=== PATIENT | male | born 1965 | race Caucasian/White ===

== ENCOUNTER → 2024-01-17 | Outpatient (CLI) | payer MEDICAID, SELFPAY ==
[2024-01-17 12:48] LABS: Absolute Lymphocyte Count 2.53 X10^3/uL (0.83-4.51); Absolute Neutrophil Count 3.8 X10^3/uL (2.0-7.7); Basophil# 0.07 X10^3/uL; Eosinophil# 0.14 X10^3/uL; Hematocrit 45.5 % (40-54); Hemoglobin 14.4 g/dL (13.0-16.5); Lymphocyte # 2.53 X10^3/ul (0.83-4.51); Lymphocyte % 35.5 % (19-41); Mean Corp Hgb Conc 31.6 g/dL (32-36); Mean Corpuscular Hgb 28.7 pg (27.0-32.0); Mean Corpuscular Volume 90.8 fL (80-94); Mean Platelet Vol. 10.9 fl (6.2-12.0); Monocyte% 8.4 % (0-10); NRBC Flagged by Analyzer 0 % (0-5); Neutrophil # 3.77 X10^3/uL (2.7-7.7); Neutrophil % 52.8 % (47-70); Platelet Count 250 K/mm3 (150-450); RBC Distribution Width CV 12.7 % (11.6-14.6); RBC Distribution Width SD 41.8 fl (35.1-43.9); Red Blood Count 5.01 M/mm3 (4.6-6.2); White Blood Count 7.1 K/mm3 (4.4-11.0)
[2024-01-17 13:05] LABS: ALB/GLOB Ratio 0.8 RATIO (0.9-2.4); AST(SGOT) 14 U/L (15-37); Alanine Aminotransfer ALT/SGPT 19 U/L (16-61); Albumin, Serum 3.9 g/dL (3.2-5.0); Alkaline Phosphatase 84 U/L (45-117); Anion Gap 6 (5-15); BUN 13 mg/dL (7-18); BUN/Creat Ratio 15.6 RATIO (10-20); Calcium,Total 9.2 mg/dL (8.5-10.1); Chloride 98 mmol/L (98-107); Cholesterol 249 mg/dL (200); Creatinine, Serum 0.83 mg/dL (0.70-1.30); EST Glomerular Filtration Rate 100 mL/min (>60); Est Glom Filt Rate - Afr Amer 121 mL/min (>60); Glucose 188 mg/dL (74-106); High Density Lipoprotein 36 mg/dL; Potassium 4.2 mmol/L (3.5-5.1); Protein, Total 8.9 g/dL (6.4-8.2); Sodium Level 134 mmol/L (136-145); Triglycerides 272 mg/dL; Very Low Density Lipoprotein 54 mg/dL (5-40)
[2024-01-17 13:06] LABS: Microalbumin,Random Urine 11.7 mg/L (NO RANGE EST.)
== END | disposition home or self-care (01) ==
DX: E11.9 Type 2 diabetes mellitus without complications (principal)
CPT/HCPCS: 36415; 80053; 80061; 82043; 84443; 85025

== ENCOUNTER → 2024-07-18 | Outpatient (CLI) | payer MEDICAID, SELFPAY ==
[2024-07-18 12:39] LABS: Absolute Lymphocyte Count 2.72 X10^3/uL (0.83-4.51); Absolute Neutrophil Count 4.4 X10^3/uL (2.0-7.7); Basophil# 0.08 X10^3/uL; Eosinophil# 0.23 X10^3/uL; Eosinophils% 2.8 % (0-5); Hemoglobin 13.9 g/dL (13.0-16.5); Lymphocyte # 2.72 X10^3/ul (0.83-4.51); Lymphocyte % 33.3 % (19-41); Mean Corp Hgb Conc 32.3 g/dL (32-36); Mean Corpuscular Hgb 28.8 pg (27.0-32.0); Mean Platelet Vol. 10.6 fl (6.2-12.0); Monocyte# 0.65 X10^3/uL; Monocyte% 7.9 % (0-10); NRBC Flagged by Analyzer 0 % (0-5); Neutrophil # 4.43 X10^3/uL (2.7-7.7); Neutrophil % 54.1 % (47-70); Platelet Count 243 K/mm3 (150-450); RBC Distribution Width CV 12.7 % (11.6-14.6); RBC Distribution Width SD 41.7 fl (35.1-43.9); Red Blood Count 4.83 M/mm3 (4.6-6.2); White Blood Count 8.2 K/mm3 (4.4-11.0)
[2024-07-18 13:05] LABS: Microalbumin,Random Urine < 12.0 mg/L (NO RANGE EST.)
[2024-07-18 13:16] LABS: AST(SGOT) 16 U/L (<=37); Alanine Aminotransfer ALT/SGPT 11 U/L (<=46); Albumin, Serum 4.2 g/dL (3.4-4.8); Alkaline Phosphatase 90 U/L (40-129); Anion Gap 15 (5-15); BUN 16 mg/dL (4-19); BUN/Creat Ratio 16.6 RATIO (10-20); Calcium,Total 9.1 mg/dL (7.6-11.0); Carbon Dioxide 23.6 mmol/L (21.0-32.0); Chloride 95 mmol/L (98-108); Cholesterol 287 mg/dL (<=200); Creatinine, Serum 0.96 mg/dL (0.70-1.20); EST Glomerular Filtration Rate 91 (>60); Globulin 4.2 g/dL (2.2-4.2); Glucose 243 mg/dL (70-99); High Density Lipoprotein 29 mg/dL; Low Density Lipoprotein Calc. 88 mg/dL; Potassium 4.1 mmol/L (3.3-5.1); Protein, Total 8.4 g/dL (5.9-8.4); Sodium Level 134 mmol/L (133-145); Total Bilirubin 0.45 mg/dL (0.00-1.30); Triglycerides 847 mg/dL; Very Low Density Lipoprotein 169 mg/dL (5-40); cholesterol:hdl ratio screen 9.83
== END | disposition home or self-care (01) ==
LOC: VSLAB 12:03
PROVIDERS: Visit Provider Nurse Practitioner Family
DX: I10 Essential (primary) hypertension (principal); E11.9 Type 2 diabetes mellitus without complications
CPT/HCPCS: 36415; 80053; 80061; 82043; 84443; 85025

== ENCOUNTER → 2024-08-07 | Outpatient (CLI) | payer MEDICAID, SELFPAY ==
[2024-08-07 17:16] LABS: Free T3 2.5 pg/mL (2.18-3.98); T4 Total, Thyroxin 8.3 ug/dL (4.5-12.1)
--- OUTSIDE RECORDS SUMMARY | 2024-08-07 22:14 | XMS RPT_ITS | CCD ---
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 manifestations] Onset: 03-23-2023 Episodic Miscellaneous mental health disorders (3 sources) Male erectile disorder; Translations: [Erectile dysfunction] Onset: 04-27-2021 Chronic Nutritional deficiencies (2 sources) Vitamin D deficiency, unspecified; Translations: [E55.9 - Vitamin D deficiency, unspecified] Onset: 11-12-2016 Chronic Osteoarthritis (3 sources) Arthritis; Translations: [Unspecified osteoarthritis, unspecified site] 04-30-2024 Chronic Other aftercare (1 source) 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; Translations: [SHELTER USE ORAL HYPOGLYCEMIC DX] Onset: 10-27-2023 Episodic Other circulatory disease (1 source) Postural orthostatic tachycardia syndrome ; Translations: [Postural orthostatic tachycardia syndrome [POTS]] Onset: 06-06-2024 Episodic Other connective tissue disease (2 sources) Pain in right arm; Translations: [Pain in right arm] Onset: 10-20-2023 Resolved: 10-20-2023 Episodic Other connective tissue disease (2 sources) Pain in right arm; Translations: [PAIN IN RIGHT ARM] Onset: 10-31-2023 Episodic Other male genital disorders (2 sources) Impotence Onset: 04-27-2021 Resolved: 05-19-2021 Chronic Other non-traumatic joint disorders (1 source) Pain in elbow; Translations: [Pain in right elbow] 08-16-2023 Episodic Other non-traumatic joint disorders (1 source) Pain of left wrist; Translations: [Pain in left wrist] 08-16-2023 Episodic Other upper respiratory infections (8 sources) Acute pharyngitis; Translations: [Acute pharyngitis, unspecified] Onset: 03-23-2023 Episodic Julieta-; endo-; and myocarditis; cardiomyopathy (except that caused by tuberculosis or sexually transmitted disease) (3 sources) Dilated cardiomyopathy Onset: 09-18-2021 Chronic Pulmonary heart disease (4 sources) Pulmonary hypertension due to diastolic systemic ventricular dysfunction Onset: 09-14-2017 Chronic Screening and history of mental health and substance abuse codes (1 source) Personal history of nicotine dependence; Translations: [PERSONAL HISTORY OF NICOTINE DEPEND] Onset: 10-27-2023 Episodic Syncope (4 sources) Syncope and collapse; Translations: [Syncope and collapse] Onset: 06-06-2024 04-30-2024 Episodic Unclassified (1 source) Contact with and (suspected) exposure to covid-19; Translations: [Contact with and (suspected) exposure to covid-19] Onset: 03-23-2023 Unclassified (2 sources) Chronic atrial fibrillation, unspecified; Translations: [Chronic atrial fibrillation, unspecified] Onset: 12-01-2023 Viral infection (2 sources) COVID-19; Translations: [COVID-19] Onset: 03-26-2023 Past or Other Problems Problem Classification Problem Date Documented Da te Episodic/Chronic Cardiac dysrhythmias (1 source) Bradycardia; Translations: [Bradycardia, unspecified] Onset: 09-18-2021 Resolved: 09-18-2021 Episodic E Codes: Fall (1 source) Unspecified fall, initial encounter; Translations: [UNSPECIFIED FALL INITIAL ENCOUNTER] Onset: 06-07-2023 Episodic Fracture of upper limb (5 sources) Nondisplaced fracture (avulsion) of medial epicondyle of right humerus, initial encounter for closed fracture; Translations: [Closed fracture of lower end of humerus] Onset: 06-15-2023 Episodic Fracture of upper limb (4 sources) Closed fracture of left wrist; Translations: [Fracture of unspecified carpal bone, left wrist, initial encounter for closed fracture] Onset: 08-16-2023 08-10-2023 Episodic Genitourinary symptoms and ill-defined conditions (16 sources) Microalbuminuria; Translations: [Proteinuria, unspecified] Onset: 10-31-2020 06-16-2023 Episodic Mycoses (2 sources) Tinea unguium; Translations: [B35.1 - Tinea unguium] Onset: 11-09-2016 Episodic Other connective tissue disease (4 sources) Pain in left toe(s); Translations: [Pain in right toe(s)] Onset: 11-09-2016 Episodic Other injuries and conditions due to external causes (1 source) Injury of foot; Translations: [Unspecified injury of left foot, initial encounter] Onset: 11-07-2021 Resolved: 11-07-2021 Episodic Other injuries and conditions due to external causes (3 sources) Unspecified injury of head, initial encounter; Translations: [UNSPECIFIED INJURY HEAD INITIAL ENC] Onset: 06-02-2023 Episodic Other non-traumatic joint disorders (2 sources) Pain in left wrist; Translations: [Pain in left wrist] Onset: 08-16-2023 Episodic Other non-traumatic joint disorders (2 sources) Pain in right elbow; Translations: [Pain in right elbow] Onset: 08-16-2023 Episodic Other skin disorders (2 sources) Other nail disorders; Translations: [L60.8 - Other nail disorders] Onset: 11-09-2016 Episodic Superficial injury; contusion (4 sources) Contusion of wrist; Translations: [Contusion of lower limb] Onset: 06-07-2023 Episodic Unclassified (1 source) Contact with and (suspected) exposure to covid-19; Translations: [Contact with and (suspected) exposure to covid-19] Onset: 03-23-2023 Viral infection (1 source) Disease caused by 2019-nCoV; Translations: [COVID-19] 03-26-2023 Episodic Results Test Name Value Interpretation Reference Range Facility IOL BIOMETRY W/ IOL CALC OU (BOTH EYES)on 08-06-2024 [facility] Radiology Study observation (narrative) Maylin karimi [facility] CNCOon 07-23-2024 [facility] Letter Text Normal [facility] Absolute lymphocyte countOrd ered By: [facility] Ele Cotto on 07-18-2024 Lymphocytes Auto (Unsp spec) [#/Vol] 2.72 10*3/uL 0.83-4.51 [facility] Absolute neutrophil countOrd ered By: [facility] Ele Cotto on 07-18-2024 Neutrophils (Bld) [#/Vol] 4.4 10*3/uL 2.0-7.7 [facility] Anion gap in Serum or Plasma Ordered By: [facility] Ele Cotto on 07-18-2024 Anion gap [Moles/Vol] 15 mmol/L 5-15 [facility] Automated lymphocyte count a s percentage of total leukocytesOrdered By: [facility] Eleradha Cotto on 07-18-2024 Lymphocytes/100 WBC Auto (Unsp spec) 33.3 % 19-41 [facility] BUN/creatinine ratioOrdered By: [facility] Eleradha Cotto on 07-18-2024 Urea nitrogen/Creatinine [Mass ratio] 16.6 mg/mg 10-20 [facility] Basophil percentageOrdered B y: [facility] Ele Cotto on 07-18-2024 Basophils/100 WBC (Bld) 1.0 % 0-1 [facility] Bilirubin, totalOrdered By: [facility] Ele Cotto on 07-18-2024 Bilirubin [Mass/Vol] 0.45 mg/dL 0.00-1.30 [facility] CBC W/Diff, Automatedon Absolute Lymph 2.72 X10 3/uL Normal 0.83-4.51 [facility] Comment on above: Performed By: #### L 500.4100, L501.9520, L100.0100, L502.0500, L500.4050 #### [facility] [address] [place], [address] Absolute Neut 4.4 X10 3/uL Normal 2.0-7.7 [facility] Comment on above: Performed By: #### L 500.4100, L501.9520, L100.0100, L502.0500, L500.4050 #### [facility] [address] [place], [address] Basophils/100 WBC (Bld) 1.0 % Normal 0-1 [facility] Comment on above: Performed By: #### L 500.4100, L501.9520, L100.0100, L502.0500, L500.4050 #### [facility] [address] [place], [address] Eosinophils/100 WBC (Bld) 2.8 % Normal 0-5 [facility] Comment on above: Performed By: #### L 500.4100, L501.9520, L100.0100, L502.0500, L500.4050 #### [facility] [address] [place], [address] Erythrocyte distribution width (RBC) [Ratio] 12.7 % Normal 11.6-14.6 [facility] Comment on above: Performed By: #### L 500.4100, L501.9520, L100.0100, L502.0500, L500.4050 #### [facility] [address] [place], [address] Hematocrit (Bld) [Volume fraction] 43.0 % Normal 40-54 [facility] Comment on above: Performed By: #### L 500.4100, L501.9520, L100.0100, L502.0500, L500.4050 #### [facility] [address] [place], [address] Hemoglobin (Bld) [Mass/Vol] 13.9 g/dL Normal 13.0-16.5 [facility] Comment on above: Performed By: #### L 500.4100, L501.9520, L100.0100, L502.0500, L500.4050 #### [facility] [address] [place], [address] IG% 0.900 Normal 0.0-0.9 [facility] Comment on above: Result Comment: IG% - Immature Granulocytes (promyelocytes, myelocytes and metamyelocytes) > 1% indicates that a LEFT SHIFT is Present. Performed By: #### L 500.4100, L501.9520, L100.0100, L502.0500, L500.4050 #### [facility] [address] [place], [address] Lymphocytes/100 WBC (Bld) 33.3 % Normal 19-41 [facility] Comment on above: Performed By: #### L 500.4100, L501.9520, L100.0100, L502.0500, L500.4050 #### [facility] [address] [place], [address] MCH (RBC) [Entitic mass] 28.8 pg Normal 27.0-32.0 [facility] Comment on above: Performed By: #### L 500.4100, L501.9520, L100.0100, L502.0500, L500.4050 #### [facility] [address] [place], [address] MCHC (RBC) [Mass/Vol] 32.3 g/dL Normal 32-36 [facility] Comment on above: Performed By: #### L 500.4100, L501.9520, L100.0100, L502.0500, L500.4050 #### [facility] [address] [place], [address] MCV (RBC) [Entitic vol] 89.0 fL Normal 80-94 [facility] Comment on above: Performed By: #### L 500.4100, L501.9520, L100.0100, L502.0500, L500.4050 #### [facility] [address] [place], [address] Monocytes/100 WBC (Bld) 7.9 % Normal 0-10 [facility] Comment on above: Performed By: #### L 500.4100, L501.9520, L100.0100, L502.0500, L500.4050 #### [facility] [address] [place], [address] Neutrophils/100 WBC (Bld) 54.1 % Normal 47-70 [facility] Comment on above: Performed By: #### L 500.4100, L501.9520, L100.0100, L502.0500, L500.4050 #### [facility] [address] [place], [address] Nucleated RBC (Bld) [#/Vol] 0 10*3/uL Normal 0-5 [facility] Comment on above: Performed By: #### L 500.4100, L501.9520, L100.0100, L502.0500, L500.4050 #### [facility] [address] [place], [address] Platelet mean volume (Bld) [Entitic vol] 10.6 fL Normal 6.2-12.0 [facility] Comment on above: Performed By: #### L 500.4100, L501.9520, L100.0100, L502.0500, L500.4050 #### [facility] [address] [place], [address] Platelets (Bld) [#/Vol] 243 10*3/uL Normal 150-450 [facility] Comment on above: Performed By: #### L 500.4100, L501.9520, L100.0100, L502.0500, L500.4050 #### [facility] [address] [place], [address] RBC (Bld) [#/Vol] 4.83 10*6/uL Normal 4.6-6.2 [facility] Comment on above: Performed By: #### L 500.4100, L501.9520, L100.0100, L502.0500, L500.4050 #### [facility] [address] [place], [address] RDW SD 41.7 fl Normal 35.1-43.9 [facility] Comment on above: Performed By: #### L 500.4100, L501.9520, L100.0100, L502.0500, L500.4050 #### [facility] [address] [place], [address] WBC (Bld) [#/Vol] 8.2 10*3/uL Normal 4.4-11.0 [facility] Comment on above: Performed By: #### L 500.4100, L501.9520, L100.0100, L502.0500, L500.4050 #### [facility] [address] [place], [address] Calculated very low density lipoprotein (VLDL) cholesterol measurementOrdered By: [facility] Ele Cotto on 07-18-2024 Calculated very low density lipoprotein (VLDL) cholesterol measurement 169 mg/dL High 5-40 [facility] Carbon dioxide, total [Moles /volume] in Central venous bloodOrdered By: [facility] Ele Cotto on 07-18-2024 CO2 [Moles/Vol] 23.6 mmol/L 21.0-32.0 [facility] Chloride assayOrdered By: Aurora Cotto on 07-18-2024 Chloride [Moles/Vol] 95 mmol/L Low 98-108 [facility] Comprehensive Metabolic Prof ilon 07-18-2024 Albumin [Mass/Vol] 4.2 g/dL Normal 3.4-4.8 [facility] Comment on above: Performed By: #### L 500.4100, L501.9520, L100.0100, L502.0500, L500.4050 #### [facility] [address] [place], [address] Albumin/Globulin [Mass ratio] 1.0 {ratio} Normal 0.9-2.4 [facility] Comment on above: Performed By: #### L 500.4100, L501.9520, L100.0100, L502.0500, L500.4050 #### [facility] [address] [place], [address] ALK PHOS 90 U/L Normal 40-129 [facility] Comment on above: Performed By: #### L 500.4100, L501.9520, L100.0100, L502.0500, L500.4050 #### [facility] [address] [place], [address] ALT [Catalytic activity/Vol] 11 U/L Normal <=46 [facility] Comment on above: Performed By: #### L 500.4100, L501.9520, L100.0100, L502.0500, L500.4050 #### [facility] [address] [place], [address] AST [Catalytic activity/Vol] 16 U/L Normal <=37 [facility] Comment on above: Performed By: #### L 500.4100, L501.9520, L100.0100, L502.0500, L500.4050 #### [facility] [address] [place], [address] Bilirubin [Mass/Vol] 0.45 mg/dL Normal 0.00-1.30 [facility] Comment on above: Performed By: #### L 500.4100, L501.9520, L100.0100, L502.0500, L500.4050 #### [facility] [address] [place], [address] BUN/CRE 16.6 RATIO Normal 10-20 [facility] Comment on above: Performed By: #### L 500.4100, L501.9520, L100.0100, L502.0500, L500.4050 #### [facility] [address] [place], [address] Calcium [Mass/Vol] 9.1 mg/dL Normal 7.6-11.0 [facility] Comment on above: Performed By: #### L 500.4100, L501.9520, L100.0100, L502.0500, L500.4050 #### [facility] [address] [place], [address] Chloride [Moles/Vol] 95 mmol/L Low 98-108 [facility] Comment on above: Performed By: #### L 500.4100, L501.9520, L100.0100, L502.0500, L500.4050 #### [facility] [address] [place], [address] CO2 [Moles/Vol] 23.6 mmol/L Normal 21.0-32.0 [facility] Comment on above: Performed By: #### L 500.4100, L501.9520, L100.0100, L502.0500, L500.4050 #### [facility] [address] [place], [address] Creatinine [Mass/Vol] 0.96 mg/dL Normal 0.70-1.20 [facility] Comment on above: Performed By: #### L 500.4100, L501.9520, L100.0100, L502.0500, L500.4050 #### [facility] [address] [place], [address] GAP 15 Normal 5-15 [facility] Comment on above: Performed By: #### L 500.4100, L501.9520, L100.0100, L502.0500, L500.4050 #### [facility] [address] [place], [address] GFR/1.73 sq M.predicted among non-blacks MDRD (S/P/Bld) [Vol rate/Area] 91 mL/min/{1.73_m2} Normal >60 [facility] Comment on above: Result Comment: mL/m in/1.73m2 CKD-EPI Creatinine Equation (2020) Performed By: #### L 500.4100, L501.9520, L100.0100, L502.0500, L500.4050 #### [facility] [address] [place], [address] Globulin (S) [Mass/Vol] 4.2 g/dL Normal 2.2-4.2 [facility] Comment on above: Performed By: #### L 500.4100, L501.9520, L100.0100, L502.0500, L500.4050 #### [facility] [address] [place], [address] Glucose [Mass/Vol] 243 mg/dL High 70-99 [facility] Comment on above: Performed By: #### L 500.4100, L501.9520, L100.0100, L502.0500, L500.4050 #### [facility] [address] [place], [address] Potassium [Moles/Vol] 4.1 mmol/L Normal 3.3-5.1 [facility] Comment on above: Performed By: #### L 500.4100, L501.9520, L100.0100, L502.0500, L500.4050 #### [facility] [address] [place], [address] Sodium [Moles/Vol] 134 mmol/L Normal 133-145 [facility] Comment on above: Performed By: #### L 500.4100, L501.9520, L100.0100, L502.0500, L500.4050 #### [facility] [address] [place], [address] T PROT 8.4 g/dL Normal 5.9-8.4 [facility] Comment on above: Performed By: #### L 500.4100, L501.9520, L100.0100, L502.0500, L500.4050 #### [facility] [address] [place], [address] Urea nitrogen [Mass/Vol] 16 mg/dL Normal 4-19 [facility] Comment on above: Performed By: #### L 500.4100, L501.9520, L100.0100, L502.0500, L500.4050 #### [facility] [address] [place], [address] Eosinophil percentageOrdered By: [facility] Ele Cotto on 07-18-2024 Eosinophils/100 WBC (Bld) 2.8 % 0-5 [facility] Erythrocyte distribution wid th ratioOrdered By: [facility] Ele Cotto on 07-18-2024 Erythrocyte distribution width (RBC) [Ratio] 12.7 % 11.6-14.6 [facility] Erythrocyte distribution wid th standard deviationOrdered By: [facility] Ele Cotto on 07-18-2024 Erythrocyte distribution width (RBC) [Ratio] 41.7 fl 35.1-43.9 [facility] Glomerular filtration rate ( GFR) estimation/1.73 sq m using serum, plasma, or whole bOrdered By: [facility] Ele Cotto on 07-18-2024 GFR/1.73 sq M.predicted among non-blacks MDRD (S/P/Bld) [Vol rate/Area] 91 mL/min/{1.73_m2} >60 [facility] Comment on above: mL/min/1.73m2 CKD-EP I Creatinine Equation (2020) Hematocrit Auto (Bld) [Volum e fraction]Ordered By: [facility] Ele Cotto on 07-18-2024 Hematocrit (Bld) [Volume fraction] 43.0 % 40-54 [facility] Hemoglobin measurementOrdere d By: [facility] Ele Cotto on 07-18-2024 Hemoglobin (Bld) [Mass/Vol] 13.9 g/dL 13.0-16.5 [facility] Immature granulocytes/100 WB C Auto (Bld)Ordered By: [facility] Ele Cotto on 07-18-2024 Immature granulocytes/100 WBC (Bld) 0.900 % 0.0-0.9 [facility] Comment on above: IG% - Immature Granu locytes (promyelocytes, myelocytes and metamyelocytes) > 1% indicates that a LEFT SHIFT is Present. LDL calc ser/plasOrdered By: [facility] Ele Cotto on 07-18-2024 Cholesterol in LDL [Mass/Vol] 88 mg/dL [facility] Comment on above: Rrkpgxppwm=423-791 m g/dL & Higher Zati=258 mg/dL or greater Laboratory - Chemistry and C hemistry - challengeOrdered By: [facility] Ele Cotto on 07-18-2024 AST [Catalytic activity/Vol] 16 U/L <38 [facility] Lipid Profileon 07-18-2024 CHOL:HDL 9.83 Normal [facility] Comment on above: Performed By: #### L 500.4100, L501.9520, L100.0100, L502.0500, L500.4050 #### [facility] [address] [place], [address] Cholesterol [Mass/Vol] 287 mg/dL High <=200 [facility] Comment on above: Result Comment: Chol esterol level, Desirable <200 mg/dL Borderline high cholesterol 200-239 mg/dL High cholesterol >=240 mg/dL Recommendations of the NCEP Adult Treatment Panel for the following risk-cutoff thresholds for the [place] population. Performed By: #### L 500.4100, L501.9520, L100.0100, L502.0500, L500.4050 #### [facility] [address] [place], [address] Cholesterol in HDL [Mass/Vol] 29 mg/dL Low [facility] Comment on above: Result Comment: [place] on[place] Cholesterol Education Program (NCEP) guidelines: <40 mg/dL: Low HDL-cholesterol (major risk factor for CHD) >= 60 mg/dL: High HDL-cholesterol (negative risk factor for CHD) HDL-cholesterol is affected by a number of factors, e.g. smoking, exercise, hormones, sex and age. Performed By: #### L 500.4100, L501.9520, L100.0100, L502.0500, L500.4050 #### [facility] [address] [place], [address] Cholesterol in LDL [Mass/Vol] 88 mg/dL Normal [facility] Comment on above: Result Comment: Bord unvhec=797-112 mg/dL Higher Vatl=775 mg/dL or greater Performed By: #### L 500.4100, L501.9520, L100.0100, L502.0500, L500.4050 #### [facility] [address] [place], [address] Cholesterol in VLDL [Mass/Vol] 169 mg/dL High 5-40 [facility] Comment on above: Performed By: #### L 500.4100, L501.9520, L100.0100, L502.0500, L500.4050 #### [facility] [address] [place], [address] Triglyceride [Mass/Vol] 847 mg/dL High [facility] Comment on above: Result Comment: The drugs N-Acetylcysteine and Metamizole may falsely depress this assay. Normal range: <150 mg/dL Borderline High: 150-199 mg/dL High: 200-499 mg/dL Very High: >500 mg/dL Performed By: #### L 500.4100, L501.9520, L100.0100, L502.0500, L500.4050 #### [facility] [address] [place], [address] MCV (mean corpuscular volume ) determinationOrdered By: [facility] Ele Ctoto on 07-18-2024 MCV (RBC) [Entitic vol] 89.0 fL 80-94 [facility] Mean corpuscular hemoglobin (MCH) determinationOrdered By: [facility] on 07-18-2024 MCH (RBC) [Entitic mass] 28.8 pg 27.0-32.0 [facility] Mean corpuscular hemoglobin concentration (MCHC) determinationOrdered By: [facility] Ele Cotto on 07-18-2024 MCHC (RBC) [Mass/Vol] 32.3 g/dL 32-36 [facility] Mean platelet volume determi nationOrdered By: [facility] Ele Cotto on 07-18-2024 Platelet mean volume (Bld) [Entitic vol] 10.6 fL 6.2-12.0 [facility] Microalbumin,Random Urineon 07-18-2024 MICROALBUMIN,UR < 12.0 Normal NO RANGE EST. [facility] Comment on above: Performed By: #### L 500.4100, L501.9520, L100.0100, L502.0500, L500.4050 #### [facility] [address] [place], [address] Monocyte percentageOrdered B y: [facility] Ele Cotto on 07-18-2024 Monocytes/100 WBC (Bld) 7.9 % 0-10 [facility] Neutrophil percentageOrdered By: [facility] Ele Cotto on 07-18-2024 Neutrophils/100 WBC (Bld) 54.1 % 47-70 [facility] Nucleated red blood cell per centageOrdered By: [facility] Ele Cotto on 07-18-2024 Nucleated RBC/100 WBC (Bld) [Ratio] 0 % 0-5 [facility] Platelet countOrdered By: [facility] Ele Cotto on 07-18-2024 Platelets (Bld) [#/Vol] 243 10*3/uL 150-450 [facility] Potassium measurement (mass/ volume)Ordered By: [facility] Ele Cotto on 07-18-2024 Potassium (Unsp spec) [Mass/Vol] 4.1 mmol/L 3.3-5.1 [facility] RBC Auto (Bld) [#/Vol]Ordere d By: [facility] Ele Cotto on 07-18-2024 RBC (Bld) [#/Vol] 4.83 10*6/uL 4.6-6.2 [facility] Screening total cholesterol/ high density lipoprotein (HDL) cholesterol ratioOrdered By: [facility] Ele Cotto on 07-18-2024 Cholesterol.total/Choles terol in HDL [Mass ratio] 9.83 {ratio} [facility] Serum creatinine measurement (mass/volume)Ordered By: [facility] Ele Cotto on 07-18-2024 Creatinine [Mass/Vol] 0.96 mg/dL 0.70-1.20 [facility] Serum globulin measurementOr dered By: [facility] Ele Cotto on 07-18-2024 Globulin (S) [Mass/Vol] 4.2 g/dL 2.2-4.2 [facility] Serum glucose measurement (m ass/volume)Ordered By: [facility] Ele Cotto on 07-18-2024 Glucose [Mass/Vol] 243 mg/dL High 70-99 [facility] Serum or plasma alanine scott otransferase (ALT) measurementOrdered By: [facility] Ele Cotto on 07-18-2024 ALT [Catalytic activity/Vol] 11 U/L <47 [facility] Serum or plasma albumin coy urement (mass/volume)Ordered By: [facility] Ele Cotto on 07-18-2024 Albumin [Mass/Vol] 4.2 g/dL 3.4-4.8 [facility] Serum or plasma albumin/glob ulin mass ratioOrdered By: [facility] Ele Cotto on 07-18-2024 Albumin/Globulin [Mass ratio] 1.0 {ratio} 0.9-2.4 [facility] Serum or plasma alkaline jennifer sphatase measurementOrdered By: [facility] Ele Cotto on 07-18-2024 ALP [Catalytic activity/Vol] 90 U/L 40-129 [facility] Serum or plasma calcium coy urement (mass/volume)Ordered By: [facility] 07-18-2024 Calcium [Mass/Vol] 9.1 mg/dL 7.6-11.0 [facility] Serum or plasma cholesterol in HDL measurement (mass/volume)Ordered By: [facility] Ele Cotto on 07-18-2024 Cholesterol in HDL [Mass/Vol] 29 mg/dL Low >40 [facility] Comment on above: National Cholesterol Education Program (NCEP) guidelines:<40 mg/dL: Low HDL-cholesterol (major risk factor for CHD)>= 60 mg/dL: High HDL-cholesterol (negative risk factor for CHD)HDL-cholesterol is affected by a number of factors, e.g. smoking, exercise, hormones, sex and age. Serum or plasma cholesterol measurement (mass/volume)Or[facility] By: [facility] on 07-18-2024 Cholesterol [Mass/Vol] 287 mg/dL High <201 [facility] Comment on above: Cholesterol level, D esirable <200 mg/dLBorderline high cholesterol 200-239 mg/dLHigh cholesterol >=240 mg/dLRecommendations of the NCEP Adult Treatment Panel for the following risk-cutoff thresholds for the [place] population. Serum or plasma urea nitroge n measurement (mass/volume)Ordered By: [facility] on 07-18-2024 Urea nitrogen [Mass/Vol] 16 mg/dL 4-19 [facility] Sodium levelOrdered By: [facility] Center[facility] Cot[facility] on 07-18-2024 Sodium [Moles/Vol] 134 mmol/L 133-145 [facility] TSH DL <= 0.005 mIU/L QnOrde red By: [facility] on 07-18-2024 TSH Qn 4.340 uIU/mL High 0.300-4.200 [facility] Thyroid Stim Hormone (TSH)on 07-18-2024 TSH 4.340 uIU/mL High 0.300-4.200 [facility] Comment on above: Performed By: #### L 500.4100, L501.9520, L100.0100, L502.0500, L500.4050 #### [facility] [address] [place], [address] Total proteinOrdered By: [facility] Ele Cotto on 07-18-2024 Protein [Mass/Vol] 8.4 g/dL 5.9-8.4 [facility] Triglycerides measurementOrd ered By: [facility] Ele Cotto on 07-18-2024 Triglyceride [Mass/Vol] 847 mg/dL High <199 [facility] Comment on above: The drugs N-Acetylcy steine and Metamizole may falsely depress this assay. Normal range: <150 mg/dLBorderline High: 150-199 mg/dLHigh: 200-499 mg/dLVery High: >500 mg/dL Urine albumin measurement wi detection limit of 20 mg/L or less (mass/volume)Ordered By: [facility] Ele Cotto on 07-18-2024 Albumin DL <= 20 mg/L (U) [Mass/Vol] < 12.0 mg/L NO RANGE EST. [facility] White blood cell (WBC) count Ordered By: [facility] Ele Cotto on 07-18-2024 WBC (Bld) [#/Vol] 8.2 10*3/uL 4.4-11.0 [facility] Pacemaker Checkon 07-04-2024 Pacemaker Check [facility] [address] [place] [address] Pacemaker Check Date of Service: 07/04/241714 MR#: [id number] Acct: [id number] Name: KISHAN POST Rep #: [id number] : 1965 From: Joleen Mg Age/Sex: 59/M [place] [facility] [place]: Signed Billing Codes PM Device Codes: 79818 PM Dev Prog Eval, Dual Assessment and Plan Assessment and Plan (1) Sick sinus syndrome: Status: Acute (2) History of permanent cardiac pacemaker placement: Status: Acute Comment: [employer], [id number], serial number [id number] 07/04/241714 Date Joleen Mcfarland Signature: Date (if applicable) CC: Normal [facility] 12 Lead EKG performed by [facility] [place] [place] on 06-06-2024 12 Lead EKG performed by [facility] [address] [place] [address] 12 Lead EKG performed by [facility] [place] [place] 06/06/24 1428 MR#: [id number] Acct: [id number] Name: KISHAN POST Rep #: [id number] : 1965 59 From: Tiago Galloway MD Attending Dr: Dr. Tiago Galloway MD Status: DEP A MB Ordering Dr: Tiago Galloway MD Date: 06/06/24 Location: [facility] [place] Sex: M C Admitted: [facility] [place] [place]/12 Lead EKG performed by [facility] [place] [place] ECG Report Interpretation -----Sinus Rhythm -Right bundle branch block with left axis -bifascicular block. ABNORMAL Electronically signed on 06/06/2024 at 16:25 by Tiago Galloway [employer] Version [id number] 06/06/24 1630 Date Tiago Galloway MD CC: Reji SYLVESTER Beam Date Dictated: 06/06/241427 Date Transcribed: 06/06/241427 Film Editor: CO Signed Normal [facility] Cardiology Visit Reporton Cardiology Visit Report [facility] [address] [place], [place] [address] OFFICE VISIT Date of Service: 06/06/24 MR#: [id number] Acct: [id number] Name: KISHAN POST Rep #: [id number] : 1965 Provider: Dr. Tiago Galloway MD Age/Sex: 59/M Location: [facility] [place] [place] Status: Signed HPI HPI History of Present Illness Details: Pleasant 59-year-old man with a history of hypertension paroxysmal atrial fibrillation recurrent syncopal spells with a history of a bifascicular block. He was evaluated in [place] at that time and was recommended to have a dual-chamber pacemaker implanted. He had this implanted in 2014 with a [employer] generator [id number] serial #[id number] as well as [employer] 52 cm and 58 cm atrial and ventricular leads respectively. He has apparently done well since that time denying any chest pain or shortness of breath or paroxysmal nocturnal dyspnea or pedal edema. He also has a history of hypertension diabetes as well as hyperlipidemia. He tells me that his lipid profile was suboptimal and this was recently increased. He has not been on anticoagulation due to his low burden of atrial fibrillation. It does not appear that he has previously had a cardiac catheterization though he does have some coronary artery calcification. He has been compliant with all his medications. His physical exam today demonstrates clear lung arndt regular rate and rhythm and no pedal edema his electrocardiogram demonstrates sinus rhythm with a right bundle branch block and a left anterior fascicular block. Intake Vital Signs 06/06/24 14:37 Height 6 ft 1 in Weight: 238 lb BMI 31.4 BP 146/80 H Blood Pressure Location Lt brachial Position Sitting Respiration 16 Pulse 88 Pulse Source Monitor Intake Visit Reasons: AFIB (BEAM) Clinical Immunologist Required: No Accompanied by: Self Is patient in pain?: No Allergies No Known Allergies Allergy (Unverified 06/06/24 14:35) Medications ???Medication ???Instructions ???Recorded ???Confirmed ???Type aspirin 81 mg tablet,delayed 81 mg PO QDAY 04/30/24 06/06/24 Hi story release (Adult Aspirin Regimen) empagliflozin 25 mg tablet 25 mg PO QDAY 04/30/24 06/06/24 Hi story (Jardiance) escitalopram oxalate 10 mg tablet 10 mg PO QDAY 04/30/24 06/06/24 H istory (Lexapro) lisinopril 40 mg tablet 40 mg PO QDAY 04/30/24 06/06/24 Hi story metformin 1,000 mg tablet 1,000 mg PO BID 04/30/24 06/06/24 History multivitamin 1 tab PO QDAY 04/30/24 06/06/24 Hi story amlodipine 5 mg tablet (Norvasc) 10 mg PO QDAY 06/06/24 06/06/24 Hi story ascorbic acid (vitamin C) 500 mg 500 mg PO QDAY PRN 06/06/24 History tablet rosuvastatin 20 mg tablet (Crestor) 40 mg PO QDAY 06/06/24 06/06/24 History Have you fallen in the past year?: No PFSH Medical History Syncope and collapse Paroxysmal atrial fibrillation Arthritis CAD (coronary artery disease) POTS (postural orthostatic tachycardia syndrome) Hypercholesterolemia Essential (primary) hypertension Type 2 diabetes mellitus without complications Surgical History (Updated 06/06/24 @ 15:[address] Tiago Galloway MD) History of permanent cardiac pacemaker placement (08/14/14) Family History Father Parkinson disease Dementia Mother CAD (coronary artery disease) Pacemaker Afib Social History Smoking Status: Former smoker alcohol intake: never substance use type: does not use ROS Const Const: Negative for fatigue, weakness, headache(s), daytime sleepiness or difficulty sleeping ENT ENT: Negative for headache(s), dizziness or Nosebleed/epistaxis Cardio Chest Pain: No Palpitations: No Edema: None Resp Respiratory: Negative for SOB with activity, SOB at rest, SOB orthopnea SOB lying down or Cough GI GI: Negative nausea, vomiting or heartburn Neuro Neuro: Negative for dizziness, lightheadedness, near syncope, headache(s) or weakness Endo Endo: Negative for fatigue Cardiology Exam Const Appearance: cooperative, healthy appearing, no acute distress, well developed and well groomed Nutritional Appearance: average body habitus and well nourished Orientation: alert, awake and oriented x3 Head Head: normal to inspection, normocephalic and atraumatic Ears: hearing grossly normal bilaterally and external ears normal Nose: external nose normal, nares normal, nasal mucous membranes and turbinates normal, septum normal and no nasal discharge Face and Sinus: face symmetric Mouth: oral mucosae normal, tongue normal, oropharynx normal and moist mucous membranes Teeth and gingiva: dentition normal Throat: posterior oropharynx (more content not included)... Normal [facility] Thyroid Stim Hormone (TSH)on 01-18-2024 TSH 2.380 uIU/mL Normal 0.358-3.740 [facility] Comment on above: Order Comment: TG5 4 GTSH MISSED. PLEASE ADD ONTSH Performed By: #### L 501.9520, L100.0100, L500.4050, L500.4100, L502.0500 ####[facility] [address] [place], [address] CBC W/Diff, Automatedon 12 Absolute Lymph 2.53 X10 3/uL Normal 0.83-4.51 [facility] Comment on above: Performed By: #### L 501.9520, L100.0100, L500.4050, L500.4100, L502.0500 #### [facility] [address] [place], [address] Absolute Neut 3.8 X10 3/uL Normal 2.0-7.7 [facility] Comment on above: Performed By: #### L 501.9520, L100.0100, L500.4050, L500.4100, L502.0500 #### [facility] [address] [place], [address] Basophils/100 WBC (Bld) 1.0 % Normal 0-1 [facility] Comment on above: Performed By: #### L 501.9520, L100.0100, L500.4050, L500.4100, L502.0500 #### [facility] [address] [place], [address] Eosinophils/100 WBC (Bld) 2.0 % Normal 0-5 [facility] Comment on above: Performed By: #### L 501.9520, L100.0100, L500.4050, L500.4100, L502.0500 #### [facility] [address] [place], [address] Erythrocyte distribution width (RBC) [Ratio] 12.7 % Normal 11.6-14.6 [facility] Comment on above: Performed By: #### L 501.9520, L100.0100, L500.4050, L500.4100, L502.0500 #### [facility] [address] [place], [address] Hematocrit (Bld) [Volume fraction] 45.5 % Normal 40-54 [facility] Comment on above: Performed By: #### L 501.9520, L100.0100, L500.4050, L500.4100, L502.0500 #### [facility] [address] [place], [address] Hemoglobin (Bld) [Mass/Vol] 14.4 g/dL Normal 13.0-16.5 [facility] Comment on above: Performed By: #### L 501.9520, L100.0100, L500.4050, L500.4100, L502.0500 #### [facility] [address] [place], [address] IG% 0.300 Normal 0.0-0.9 [facility] Comment on above: Result Comment: IG% - Immature Granulocytes (promyelocytes, myelocytes and metamyelocytes) > 1% indicates that a LEFT SHIFT is Present. Performed By: #### L 501.9520, L100.0100, L500.4050, L500.4100, L502.0500 #### [facility] [address] [place], [address] Lymphocytes/100 WBC (Bld) 35.5 % Normal 19-41 [facility] Comment on above: Performed By: #### L 501.9520, L100.0100, L500.4050, L500.4100, L502.0500 #### [facility] [address] [place], [address] MCH (RBC) [Entitic mass] 28.7 pg Normal 27.0-32.0 [facility] Comment on above: Performed By: #### L 501.9520, L100.0100, L500.4050, L500.4100, L502.0500 #### [facility] [address] [place], [address] MCHC (RBC) [Mass/Vol] 31.6 g/dL Low 32-36 [facility] Comment on above: Performed By: #### L 501.9520, L100.0100, L500.4050, L500.4100, L502.0500 #### [facility] [address] [place], [address] MCV (RBC) [Entitic vol] 90.8 fL Normal 80-94 [facility] Comment on above: Performed By: #### L 501.9520, L100.0100, L500.4050, L500.4100, L502.0500 #### [facility] [address] [place], [address] Monocytes/100 WBC (Bld) 8.4 % Normal 0-10 [facility] Comment on above: Performed By: #### L 501.9520, L100.0100, L500.4050, L500.4100, L502.0500 #### [facility] [address] [place], [address] Neutrophils/100 WBC (Bld) 52.8 % Normal 47-70 [facility] Comment on above: Performed By: #### L 501.9520, L100.0100, L500.4050, L500.4100, L502.0500 #### [facility] [address] [place], [address] Nucleated RBC (Bld) [#/Vol] 0 10*3/uL Normal 0-5 [facility] Comment on above: Performed By: #### L 501.9520, L100.0100, L500.4050, L500.4100, L502.0500 #### [facility] [address] [place], [address] Platelet mean volume (Bld) [Entitic vol] 10.9 fL Normal 6.2-12.0 [facility] Comment on above: Performed By: #### L 501.9520, L100.0100, L500.4050, L500.4100, L502.0500 #### [facility] [address] [place], [address] Platelets (Bld) [#/Vol] 250 10*3/uL Normal 150-450 [facility] Comment on above: Performed By: #### L 501.9520, L100.0100, L500.4050, L500.4100, L502.0500 #### [facility] [address] [place], [address] RBC (Bld) [#/Vol] 5.01 10*6/uL Normal 4.6-6.2 [facility] Comment on above: Performed By: #### L 501.9520, L100.0100, L500.4050, L500.4100, L502.0500 #### [facility] [address] [place], [address] RDW SD 41.8 fl Normal 35.1-43.9 [facility] Comment on above: Performed By: #### L 501.9520, L100.0100, L500.4050, L500.4100, L502.0500 #### [facility] [address] [place], [address] WBC (Bld) [#/Vol] 7.1 10*3/uL Normal 4.4-11.0 [facility] Comment on above: Performed By: #### L 501.9520, L100.0100, L500.4050, L500.4100, L502.0500 #### [facility] [address] [place], [address] Comprehensive Metabolic Prof ilon 01-17-2024 Albumin [Mass/Vol] 3.9 g/dL Normal 3.2-5.0 [facility] Comment on above: Order Comment: TSH Performed By: #### L 501.9520, L100.0100, L500.4050, L500.4100, L502.0500 ####[facility] [address] [place], [address] Albumin/Globulin [Mass ratio] 0.8 {ratio} Low 0.9-2.4 [facility] Comment on above: Order Comment: TSH Performed By: #### L 501.9520, L100.0100, L500.4050, L500.4100, L502.0500 ####[facility] [address] [place], [address] ALK P 84 U/L Normal 45-117 [facility] Comment on above: Order Comment: TSH Performed By: #### L 501.9520, L100.0100, L500.4050, L500.4100, L502.0500 ####[facility] [address] [place], [address] ALT [Catalytic activity/Vol] 19 U/L Normal 16-61 [facility] Comment on above: Order Comment: TSH Performed By: #### L 501.9520, L100.0100, L500.4050, L500.4100, L502.0500 ####[facility] [address] [place], [address] AST [Catalytic activity/Vol] 14 U/L Low 15-37 [facility] Comment on above: Order Comment: TSH Performed By: #### L 501.9520, L100.0100, L500.4050, L500.4100, L502.0500 ####[facility] [address] [place], [address] Bilirubin [Mass/Vol] 0.60 mg/dL Normal 0.20-1.00 [facility] Comment on above: Order Comment: TSH Result Comment: For patients on eltrombopag therapy, use of Dimension [place] TBIL is not recommended. Performed By: #### L 501.9520, L100.0100, L500.4050, L500.4100, L502.0500 ####[facility] [address] [place], [address] BUN/CRE 15.6 RATIO Normal 10-20 [facility] Comment on above: Order Comment: TSH Performed By: #### L 501.9520, L100.0100, L500.4050, L500.4100, L502.0500 ####[facility] [address] [place], [address] CA,Total 9.2 mg/dL Normal 8.5-10.1 [facility] Comment on above: Order Comment: TSH Performed By: #### L 501.9520, L100.0100, L500.4050, L500.4100, L502.0500 ####[facility] [address] [place], [address] Chloride [Moles/Vol] 98 mmol/L Normal 98-107 [facility] Comment on above: Order Comment: TSH Performed By: #### L 501.9520, L100.0100, L500.4050, L500.4100, L502.0500 ####[facility] [address] [place], [address] CO2 [Moles/Vol] 30.0 mmol/L Normal 21.0-32.0 [facility] Comment on above: Order Comment: TSH Performed By: #### L 501.9520, L100.0100, L500.4050, L500.4100, L502.0500 ####[facility] [address] [place], [address] Creatinine [Mass/Vol] 0.83 mg/dL Normal 0.70-1.30 [facility] Comment on above: Order Comment: TSH Result Comment: The validity of the calculated GFR GFRAA in patients over 70 years has not been determined. Clinical correlation is essential. Performed By: #### L 501.9520, L100.0100, L500.4050, L500.4100, L502.0500 ####[facility] [address] [place], [address] EST GFR - AA 121 mL/min Normal >60 [facility] Comment on above: Order Comment: TSH Result Comment: Afri can Fijian GFR Calc Performed By: #### L 501.9520, L100.0100, L500.4050, L500.4100, L502.0500 ####[facility] [address] [place], [address] GAP 6 Normal 5-15 [facility] Comment on above: Order Comment: TSH Performed By: #### L 501.9520, L100.0100, L500.4050, L500.4100, L502.0500 ####[facility] [address] [place], [address] GFR/1.73 sq M.predicted among non-blacks MDRD (S/P/Bld) [Vol rate/Area] 100 mL/min/{1.73_m2} Normal >60 [facility] Comment on above: Order Comment: TSH Result Comment: Non- GFR Calc Performed By: #### L 501.9520, L100.0100, L500.4050, L500.4100, L502.0500 ####[facility] [address] [place], [address] Globulin (S) [Mass/Vol] 5.0 g/dL High 2.2-4.2 [facility] Comment on above: Order Comment: TSH Performed By: #### L 501.9520, L100.0100, L500.4050, L500.4100, L502.0500 ####[facility] [address] [place], [address] Glucose [Mass/Vol] 188 mg/dL High 74-106 [facility] Comment on above: Order Comment: TSH Result Comment: Fast ing Glucose result greater than or equal to 126 mg/dL suggests DIABETES MELLITUS per A.D.A. criteria. Performed By: #### L 501.9520, L100.0100, L500.4050, L500.4100, L502.0500 ####[facility] [address] [place], [address] Potassium [Moles/Vol] 4.2 mmol/L Normal 3.5-5.1 [facility] Comment on above: Order Comment: TSH Performed By: #### L 501.9520, L100.0100, L500.4050, L500.4100, L502.0500 ####[facility] [address] [place], [address] Sodium [Moles/Vol] 134 mmol/L Low 136-145 [facility] Comment on above: Order Comment: TSH Performed By: #### L 501.9520, L100.0100, L500.4050, L500.4100, L502.0500 ####[facility] [address] [place], [address] T PROT 8.9 g/dL High 6.4-8.2 [facility] Comment on above: Order Comment: TSH Performed By: #### L 501.9520, L100.0100, L500.4050, L500.4100, L502.0500 ####[facility] [address] [place], [address] Urea nitrogen [Mass/Vol] 13 mg/dL Normal 7-18 [facility] Comment on above: Order Comment: TSH Performed By: #### L 501.9520, L100.0100, L500.4050, L500.4100, L502.0500 ####[facility] [address] [place] [place], [address] Lipid Profileon 01-17-2024 Cholesterol [Mass/Vol] 249 mg/dL High 200 [facility] Comment on above: Order Comment: TSH Result Comment: <200 mg/dL Desirable 200-240 mg/dL Borderline >240 mg/dL High Risk Performed By: #### L 501.9520, L100.0100, L500.4050, L500.4100, L502.0500 ####[facility] [address] [place], [address] Cholesterol in HDL [Mass/Vol] 36 mg/dL Low [facility] Comment on above: Order Comment: TSH Result Comment: The drugs N-Acetylcysteine and Metamizole may falsely depress this assay. Reference Range HDL <40 mg/dL Low HDL Cholesterol HDL >or= 60 mg/dL High HDL Cholesterol Performed By: #### L 501.9520, L100.0100, L500.4050, L500.4100, L502.0500 ####[facility] [address] [place], [address] Cholesterol in LDL [Mass/Vol] 159 mg/dL High 0-130 [facility] Comment on above: Order Comment: TSH Performed By: #### L 501.9520, L100.0100, L500.4050, L500.4100, L502.0500 ####[facility] [address] [place], [address] Cholesterol in VLDL [Mass/Vol] 54 mg/dL High 5-40 [facility] Comment on above: Order Comment: TSH Performed By: #### L 501.9520, L100.0100, L500.4050, L500.4100, L502.0500 ####[facility] [address] [place], [address] Triglyceride [Mass/Vol] 272 mg/dL High [facility] Comment on above: Order Comment: TSH Result Comment: The drugs N-Acetylcysteine and Metamizole may falsely depress this assay. Serum Triglycerides Reference Interval Normal <150 mg/dL Borderline high 150 - 199 mg/dL High 200 - 499 mg/dL Very High > or = 500 mg/dL Performed By: #### L 501.9520, L100.0100, L500.4050, L500.4100, L502.0500 ####[facility] [address] [place], [address] Microalbumin,Random Urineon 01-17-2024 MICROALBUMIN,UR 11.7 mg/L Normal NO RANGE EST. [facility] Comment on above: Performed By: #### L 501.9520, L100.0100, L500.4050, L500.4100, L502.0500 #### [facility] [address] [place], [address] XR Humerus Viewson NEGATED: Highlighted row Hzrad [place]:Xrmric tnmusdexaekgm amm XRay Humeruson 10-20-2023 XRay Humerus TWO VIEWS OF THE RIGHT HUMERUS CLINICAL HISTORY: Pain in right arm COMPARISON: None. FINDINGS: The soft tissues are within normal limits. There is no fracture or suspicious bony lesion. IMPRESSION: No acute bony abnormality. Normal [employer] Comment on above: Order Comment: Pain in right arm XR ELBOW RIGHT 3+ VIEWS (STA NDARD)on 08-16-2023 XR ELBOW RIGHT 3+ VIEWS (STANDARD) EXAMINATION: XR ELBOW RIGHT 3+ VIEWS (STANDARD) 08/16/2023 2:20 pm HISTORY: ORDERING SYSTEM PROVIDED HISTORY: Right elbow pain, TECHNOLOGIST PROVIDED HISTORY: Injury/Trauma Reason for exam: Right elbow pain Cancer History: - Surgery, RadiationHistory: - Encounter Type: Subsequent/Follow-up Mechanism of injury: follow up fracture ORDERING SYSTEM PROVIDED DIAGNOSIS CODES: M25.521 Right elbow pain COMPARISON: 06/15/2023 FINDINGS: BONES: No acute fracture or dislocation. Stable calcific density along the medial epicondyle with no overlying soft tissue swelling. Enthesopathic spurring of the olecranon process at the triceps insertion SOFT TISSUES: No visible soft tissue swelling or radiopaque foreign body. EFFUSION: None visible. OTHER: Negative. IMPRESSION: Stable calcific density along the medial epicondyle. Lack of interval change suggests degenerative changes over a fracture Workstation ID: [id number] Dictated by: SIMÓN POLLARD on Sat Aug 20, 2023 10:12:08 AM EDT Transcribed by: SIMÓN POLLARD on Sat Aug 20, 2023 10:12:08 AM EDT Finalized by: SIMÓN POLLARD on Sat Aug 20, 2023 10:12:08 AM EDT Normal [facility] Comment on above: Order Comment: Ap, O blique, Lateral Injury/Trauma or Illness?:Injury/Trauma How long have you had these symptoms (acute/chronic)?:Acute Reason for exam?:Right elbow pain History of cancer?:- Surgeries, chemotherapy, or radiation?:- Type of Exam?:Subsequent/Follow-up Mechanism of injury?:follow up fracture XR WRIST LEFT 3+ VIEWS (GEMINI CASPER)on 08-16-2023 XR WRIST LEFT 3+ VIEWS (STANDARD) EXAMINATION: XR WRIST LEFT 3+ VIEWS (STANDARD) 08/16/2023 2:20 pm HISTORY: ORDERING SYSTEM PROVIDED HISTORY: left wrist pain, TECHNOLOGIST PROVIDED HISTORY: Injury/Trauma Reason for exam: Left wrist pain Cancer History: - Surgery, RadiationHistory: - Encounter Type: Subsequent/Follow-up Mechanism of injury: follow up fracture ORDERING SYSTEM PROVIDED DIAGNOSIS CODES: M25.532 Left wrist pain COMPARISON: 06/15/2023 FINDINGS: BONES: No acute fracture or dislocation. Mild degenerative changes with joint space narrowing medial carpus SOFT TISSUES: No visible soft tissue swelling or radiopaque foreign body. EFFUSION: None visible. OTHER: Negative. IMPRESSION: Mild stable joint space narrowing medial carpus Workstation ID: [id number] Dictated by: SIMÓN POLLARD on Sat Aug 20, 2023 10:13:26 AM EDT Transcribed by: SIMÓN POLLARD on Sat Aug 20, 2023 10:13:26 AM EDT Finalized by: SIMÓN POLLARD on Sat Aug 20, 2023 10:13:26 AM EDT Normal [facility] Comment on above: Order Comment: Ap, O blique, Lateral Injury/Trauma or Illness?:Injury/Trauma How long have you had these symptoms (acute/chronic)?:Acute Reason for exam?:Left wrist pain History of cancer?:- Surgeries, chemotherapy, or radiation?:- Type of Exam?:Subsequent/Follow-up Mechanism of injury?:follow up fracture BASIC METABOLIC PANELon 05-0 Anion gap [Moles/Vol] 15 mmol/L Normal 10-20 [facility] Comment on above: Order Comment: [facility] has implemented the eGFR calculation approach that does not have a coefficient for race that conforms to the NKF-ASN Task Force Recommendations. Performed By: #### 4 [id number] #### [facility] [address] [id number] Washington Carty M.D. [id number] Calcium [Mass/Vol] 8.7 mg/dL Normal 8.4-10.2 [facility] Comment on above: Order Comment: [facility] has implemented the eGFR calculation approach that does not have a coefficient for race that conforms to the NKF-ASN Task Force Recommendations. Performed By: #### 4 [id number] #### [facility] [address] [place], [place] [address] Washington Carty M.D. [id number] Chloride [Moles/Vol] 96 mmol/L Low 98-108 [facility] Comment on above: Order Comment: [facility] has implemented the eGFR calculation approach that does not have a coefficient for race that conforms to the NKF-ASN Task Force Recommendations. Performed By: #### 4 [id number] #### [facility] [address] [address] Washington Carty M.D. [id number] Creatinine [Mass/Vol] 0.74 mg/dL Normal 0.50-1.30 [facility] Comment on above: Order Comment: [facility] has implemented the eGFR calculation approach that does not have a coefficient for race that conforms to the NKF-ASN Task Force Recommendations. Performed By: #### 4 [id number] #### [facility] [address] [id number] Washington Carty M.D. [id number] EGFR 104 mL/min/1.73 m2 Normal >=60 [facility] Comment on above: Order Comment: [facility] has implemented the eGFR calculation approach that does not have a coefficient for race that conforms to the NKF-ASN Task Force Recommendations. Result Comment: Clair mated GFR was calculated using the 2020 CKD-EPI creatinine equation. Performed By: #### 4 [id number] #### [facility] [address] [address] Washington Carty M.D. [id number] Glucose [Mass/Vol] 344 mg/dL High 65-99 [facility] Comment on above: Order Comment: [facility] has implemented the eGFR calculation approach that does not have a coefficient for race that conforms to the NKF-ASN Task Force Recommendations. Performed By: #### 4 [id number] #### [facility] [address] [id number] Washington Carty M.D. [id number] HCO3 (Bld) [Moles/Vol] 27 mmol/L Normal 21-32 [facility] Comment on above: Order Comment: [facility] has implemented the eGFR calculation approach that does not have a coefficient for race that conforms to the NKF-ASN Task Force Recommendations. Performed By: #### 4 [id number] #### [facility] [address] [id number] Washington Carty M.D. [id number] Potassium [Moles/Vol] 4.1 mmol/L Normal 3.5-5.1 [facility] Comment on above: Order Comment: [facility] has implemented the eGFR calculation approach that does not have a coefficient for race that conforms to the NKF-ASN Task Force Recommendations. Performed By: #### 4 [id number] #### [facility] [address] [place], [place] [address] Washington Carty M.D. [id number] Sodium [Moles/Vol] 134 mmol/L Low 135-145 [facility] Comment on above: Order Comment: [facility] has implemented the eGFR calculation approach that does not have a coefficient for race that conforms to the NKF-ASN Task Force Recommendations. Performed By: #### 4 [id number] #### [facility] [address] [place], [place] [address] Washington Carty M.D. [id number] Urea nitrogen [Mass/Vol] 17 mg/dL Normal 8-25 [facility] Comment on above: Order Comment: [facility] has implemented the eGFR calculation approach that does not have a coefficient for race that conforms to the NKF-ASN Task Force Recommendations. Performed By: #### 4 [id number] #### [facility] [address] [id number] Washington Carty M.D. [id number] Urea nitrogen/Creatinine [Mass ratio] 23.0 mg/mg High 10.0-20.0 [facility] Comment on above: Order Comment: [facility] has implemented the eGFR calculation approach that does not have a coefficient for race that conforms to the NKF-ASN Task Force Recommendations. Performed By: #### 4 [id number] #### [facility] [address] [place], [place] [address] Washington Carty M.D. [id number] Anion gap [Moles/Vol] 16 mmol/L Normal 10-20 [facility] Comment on above: Order Comment: [facility] has implemented the eGFR calculation approach that does not have a coefficient for race that conforms to the NKF-ASN Task Force Recommendations. Performed By: #### 4 [id number] #### [facility] [address] [place], [place] [address] Washington Carty M.D. [id number] Calcium [Mass/Vol] 8.2 mg/dL Low 8.4-10.2 [facility] Comment on above: Order Comment: [facility] has implemented the eGFR calculation approach that does not have a coefficient for race that conforms to the NKF-ASN Task Force Recommendations. Performed By: #### 4 [id number] #### [facility] [address] [id number] Washington Carty M.D. [id number] Chloride [Moles/Vol] 100 mmol/L Normal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 #[id number] [place] Chinmay Henderson M.D., Director LDL Cholesterol calculated 77 mg/dl Normal <100 [facility] Comment on above: Performed By: #### A DP, GGT, UA, CP1, VIT D 25 ####[facility], CLIA #[id number] [facility] M.D., Brand Marketing Intern Ratio 4.73 Normal [facility] Comment on above: Result Comment: RISK NORMALS MEN WOMEN1/[address] 23.39 11.04TRIGLYCERIDES >400 MG/DL MAY CAUSE INCONSISTENCIESIN THE LDL. Performed By: #### A DP, GGT, UA, CP1, VIT D 25 ####[facility], CLIA #[id number] [facility] M.[facility] Director Triglyceride 221 mg/dL High <150 [facility] Comment on above: Performed By: #### A DP, GGT, UA, CP1, VIT D 25 ####[facility], CLIA #[id number] [place] Albetr M.D., Director Uric Acid Bloodon 11-12-2016 Uric Acid Blood 5.0 MG/DL Normal 3.4-7.0 [facility] Comment on above: Performed By: #### A DP, GGT, UA, CP1, VIT D 25 ####[facility], CLIA #[id number] [facility] M[facility]., Director Vitamin D 25 Hydroxyon 11-12 Vitamin D 25 Hydroxy 22 NG/ML Low 30-80 [facility] Comment on above: Result Comment: This assay quantifies the sum of the Vitamin D2 25-Hydroxyand Vitamin D3 25-HydroxyReference Range: Deficiency <20 ng/ml Insufficiecny 20-29 ng/ml Optimum 30-80 ng/ml Performed By: #### A DP, GGT, UA, CP1, VIT D 25 ####[facility], [facility] #[id number] [facility] Toño Mathews, Director No Panel Information NEGATED: Highlighted row Dinahrad [place]:Xrmric tnmusdexaekgm amm Vital Signs Date Time Vital Sign Value Performing Clinician Facility 06-06-2024 14:37-0400 Body height 185.42 cm Zebulun Beam FIELD ARTILL[employer] SENIOR SERGEANT-C Work Phone: 4(116)[phone] [place] [address] 06-06-2024 14:37-0400 Body mass index (BMI) [Ratio] 31.4 kg/m2 Zebulun Beam [employer] ART[employer] SENIOR SERGEANT-C Work Phone: 2([phone])706-083127 [place] [address] 06-06-2024 14:37-0400 Body weight 107.95 kg Zebulun Beam FIELD ARTILLERY SENIOR SERGEANT-C Work Phone: 5(206)930-172727 [place] [address] 06-06-2024 14:37-0400 Diastolic blood pressure 80 mm[Hg] Zebulun Beam FIELD ARTILLERY SENIOR SERGEANT-C Work Phone: 7(275)000-840527 [place] [address] 06-06-2024 14:37-0400 Heart rate 88 /min Zebulun Beam [employer] ART[employer] SENIOR SERGEANT-C Work Phone: 3(675)403-668627 [place] [address] 06-06-2024 14:37-0400 Respiratory rate 16 /min Zebulun Beam FIELD ARTILLERY SENIOR SERGEANT-C Work Phone: 8(360)716-231627 [place] [address] 06-06-2024 14:37-0400 Systolic blood pressure 146 mm[Hg] Zebulun Beam FIELD ARTILLERY SENIOR SERGEANT-C Work Phone: 5(144)748-488727 [place] [address] 10-20-2023 01:00-0400 Body height 186.69 cm Khadijah Castañeda [facility] 10-20-2023 01:00-0400 Body mass index (BMI) [Ratio] 31.6 kg/m2 Khadijah Castañeda [facility] 10-20-2023 01:00-0400 Body surface area Derived from formula 2.39 m2 Khadijah Castañeda [employer] 10-20-2023 01:00-0400 Body temperature 98.3 [degF] Khadijah Castañeda [employer] [facility] [employer] 10-20-2023 01:00-0400 Body weight 110.22 kg Khadijah Castañeda [facility] 10-20-2023 01:00-0400 Diastolic blood pressure 82 mm[Hg] Khadijah Castañeda [employer] [facility] 10-20-2023 01:00-0400 Heart rate 81 /min Khadijah Castañeda [employer] 10-20-2023 01:00-0400 Respiratory rate 16 /min Khadijah Castañeda [employer] 10-20-2023 01:00-0400 SaO2% (BldA) [Mass fraction] 99 % Khadijah Castañeda [employer] 10-20-2023 01:00-0400 Systolic blood pressure 144 mm[Hg] Khadijah Castañeda [employer] 08-16-2023 14:36-0400 Body mass index (BMI) [Ratio] 30.43 kg/m2 [employer] Work Phone: [facility] 08-16-2023 14:36-0400 Body temperature 98.8 [degF] [employer] Work Phone: [facility] 08-16-2023 14:36-0400 Body weight 106.05 kg Lyn Knable DO Work Phone: [facility] 08-16-2023 14:36-0400 Diastolic blood pressure 83 mm[Hg] Lyn Knable DO Work Phone: [facility] 08-16-2023 14:36-0400 Heart rate 87 /min Lyn Knable DO Work Phone: [facility] 08-16-2023 14:36-0400 Systolic blood pressure 146 mm[Hg] Lyn Knable DO Work Phone: [facility] 06-16-2023 18:38-0400 Diastolic blood pressure 95 mm[Hg] Samir Figueroa DO Work Phone: [facility] 06-16-2023 18:38-0400 Heart rate 95 /min Samir Figueroa DO Work Phone: [facility] 06-16-2023 18:38-0400 SaO2% (BldA) [Mass fraction] 95 % Samir Figueroa DO Work Phone: [facility] 06-16-2023 18:38-0400 Systolic blood pressure 140 mm[Hg] Samir Figueroa DO Work Phone: [facility] 06-16-2023 13:37-0400 Respiratory rate 20 /min Samir Figueroa DO Work Phone: [facility] 06-16-2023 02:17-0400 Body temperature 98.29 [degF] Samir Figueroa DO Work Phone: [facility] 03-26-2023 10:15-0500 Diastolic blood pressure 99 mm[Hg] Cari Padilla VOCATIONAL TRAINING DIRECTOR Work Phone: [facility] 03-26-2023 10:15-0500 Systolic blood pressure 154 mm[Hg] Cari Padilla VOCATIONAL TRAINING DIRECTOR Work Phone: [facility] 03-26-2023 10:14-0500 Body temperature 103.1 [degF] Cari Padilla VOCATIONAL TRAINING DIRECTOR Work Phone: [facility] 03-26-2023 10:14-0500 Heart rate 118 /min Cari Padilla VOCATIONAL TRAINING DIRECTOR Work Phone: [facility] 03-26-2023 10:14-0500 Respiratory rate 16 /min Cari Padilla VOCATIONAL TRAINING DIRECTOR Work Phone: [facility] 03-26-2023 10:14-0500 SaO2% (BldA) [Mass fraction] 95 % Cari Padilla CNP Work Phone: [facility] 03-23-2023 09:37-0500 Diastolic blood pressure 106 mm[Hg] Cody Hilario III, DO Work Phone: [facility] 03-23-2023 09:37-0500 Systolic blood pressure 194 mm[Hg] Cody Hilario III, DO Work Phone: [facility] 03-23-2023 09:36-0500 Body temperature 98.4 [degF] Cody Hilario III, DO Work Phone: [facility] 03-23-2023 09:36-0500 Heart rate 85 /min Cody Hilario III, DO Work Phone: [facility] 03-23-2023 09:36-0500 Respiratory rate 16 /min Cody Hilario III, DO Work Phone: [facility] 03-23-2023 09:36-0500 SaO2% (BldA) [Mass fraction] 98 % Cody Hilario III, DO Work Phone: [facility] 11-07-2021 01:00-0400 Body height 186.69 cm Kelley Warreny [facility] 11-07-2021 01:00-0400 Body temperature 97.3 [degF] Kelley MLW [employer] 11-07-2021 01:00-0400 Diastolic blood pressure 88 mm[Hg] Kelley Warreny [employer] 11-07-2021 01:00-0400 Diastolic blood pressure 87 mm[Hg] Kelley Gastelum [employer] 11-07-2021 01:00-0400 Heart rate 82 /min Kelley MLW [employer] 11-07-2021 01:00-0400 Respiratory rate 16 /min Kelley MLW [employer] [facility] 11-07-2021 01:00-0400 SaO2% (BldA) [Mass fraction] 98 % Kelley Gastelum [facility] 11-07-2021 01:00-0400 Systolic blood pressure 138 mm[Hg] Kelley Gastelum [facility] 11-07-2021 01:00-0400 Systolic blood pressure 171 mm[Hg] Kelley Gastelum [employer] 09-18-2021 01:00-0400 Body temperature 98.2 [degF] Kennedi Greer [employer] 09-18-2021 01:00-0400 Body weight 111.77 kg Kennedi Greer [facility] 09-18-2021 01:00-0400 Diastolic blood pressure 75 mm[Hg] Kennedi Greer [facility] 09-18-2021 01:00-0400 Heart rate 84 /min Kennedi Greer [facility] 09-18-2021 01:00-0400 SaO2% (BldA) [Mass fraction] 98 % Kennedi Greer [employer] 09-18-2021 01:00-0400 Systolic blood pressure 154 mm[Hg] Kennedi Greer [facility] 06-25-2021 09:41-0400 Body mass index (BMI) [Ratio] 32.54 kg/m2 Crystal Love DO Work Phone: [facility] 06-25-2021 09:41-0400 Body temperature 98.91 [degF] Crystal Love DO Work Phone: [facility] 06-25-2021 09:41-0400 Body weight 113.4 kg Crystal Love DO Work Phone: [facility] 06-25-2021 09:41-0400 Heart rate 90 /min Crystal Love DO Work Phone: [facility] 06-25-2021 09:41-0400 Respiratory rate 16 /min Crystal Love DO Work Phone: [facility] 06-25-2021 09:41-0400 SaO2% (BldA) [Mass fraction] 94 % Crystal Love DO Work Phone: [facility] 05-19-2021 01:00-0400 Body height 186.69 cm Khadijah Castañeda [facility] 05-19-2021 01:00-0400 Body mass index (BMI) [Ratio] 32.2 kg/m2 Khadijah Castañeda [employer] 05-19-2021 01:00-0400 Body surface area Derived from formula 2.41 m2 Khadijah Castañeda [employer] 05-19-2021 01:00-0400 Body temperature 97.6 [degF] Khadijah Castañeda [employer] 05-19-2021 01:00-0400 Body weight 112.15 kg Khadijah Castañeda [facility] 05-19-2021 01:00-0400 Diastolic blood pressure 74 mm[Hg] Khadijah Castañeda [facility] 05-19-2021 01:00-0400 Heart rate 78 /min Khadijah Castañeda [facility] 05-19-2021 01:00-0400 SaO2% (BldA) [Mass fraction] 97 % Khadijah Castañeda [facility] 05-19-2021 01:00-0400 Systolic blood pressure 132 mm[Hg] Khadijah Castañeda [facility] 09-09-2019 12:24-0400 BMI (Body Mass Index) 32.54 kg/m2 [facility] 09-09-2019 12:24-0400 Body Temperature 98.01 [degF] [facility] 09-09-2019 12:24-0400 Body weight 113.4 kg Eliz Miguel [facility] 09-09-2019 12:24-0400 BP Diastolic 95 mm[Hg] Eliz Miguel [facility] 09-09-2019 12:24-0400 BP Systolic 193 mm[Hg] Eliz Miguel [facility] 09-09-2019 12:24-0400 Height 186.7 cm Eliz Miguel [facility] 09-09-2019 12:24-0400 Pulse (Heart Rate) 103 /min Eliz Miguel [facility] 09-09-2019 12:24-0400 Pulse Oximetry 95 % Eliz Miguel [facility] 09-09-2019 12:24-0400 Respiratory Rate 15 /min Eliz Miguel [facility] 07-28-2019 13:50-0400 BMI (Body Mass Index) 32.98 kg/m2 [facility] 07-28-2019 13:50-0400 Body Temperature 97.11 [degF] [facility] 07-28-2019 13:50-0400 Body weight 113.4 kg [facility] 07-28-2019 13:50-0400 BP Diastolic 110 mm[Hg] [facility] 07-28-2019 13:50-0400 BP Systolic 200 mm[Hg] [facility] 07-28-2019 13:50-0400 Height 185.4 cm [facility] 07-28-2019 13:50-0400 Pulse (Heart Rate) 72 /min [facility] 07-28-2019 13:50-0400 Pulse Oximetry 98 % [facility] 07-28-2019 13:50-0400 Respiratory Rate 16 /min [facility] 05-08-2019 12:53-0400 BMI (Body Mass Index) 32.67 kg/m2 [facility] 05-08-2019 12:53-0400 Body Temperature 99.19 [degF] [facility] 05-08-2019 12:53-0400 Body weight 113.[address] [facility] 05-08-2019 12:53-0400 BP Diastolic 104 mm[Hg] [facility] 05-08-2019 12:53-0400 BP Systolic 196 mm[Hg] [facility] 05-08-2019 12:53-[address] [facility] 05-08-2019 12:53-0400 Pulse (Heart Rate) 72 /min [facility] 05-08-2019 12:53-0400 Respiratory Rate 16 /min [facility] Encounters Encounter Date Encounter Type Care Provider Facility Start: 08-06-2024 End: 08-06-2024 Patient encounter procedure A-Scan [facility] [place] Work Phone: Keith Rodriguez Comment on above: Combined forms of ag e-related cataract of both eyes Start: 08-06-2024 End: 08-06-2024 ambulatory SELF Facility:[facility] Start: 07-18-2024 End: 07-18-2024 ambulatory Zebulun Beam [employer]ELD [employer] SENIOR SERGEANT-C Work Phone: [facility] Work Phone: Start: 07-18-2024 End: 07-18-2024 Patient encounter procedure VSC Ele Cotto FIELD ARTILLERY SENIOR SERGEANT-C -[facility] Start: 07-18-2024 End: 07-18-2024 ambulatory Zebulun Beam VSC Facility:[facility] Start: 07-04-2024 End: 07-04-2024 ambulatory Zebulun Beam FIELD ARTILLERY SENIOR SERGEANT-C Work Phone: [facility] Work Phone: Start: 07-04-2024 End: 07-04-2024 Patient encounter procedure Joleen Mg [facility] Work Phone: Start: 07-03-2024 ambulatory Zebulun Beam VSC Facili ty:[facility] Start: 07-02-2024 End: 07-02-2024 Patient encounter procedure Jhon Perez MD Work Phone: Keith Rodriguez Comment on above: Combined forms of ag e-related cataract of both eyes (Primary Dx); Type 2 diabetes mellitus without retinopathy (HCC) Start: 07-02-2024 End: 07-02-2024 ambulatory JHON PEREZ Facility:[facility] Start: 06-06-2024 End: 06-06-[address] Tiago Galloway MD -[facility] Work Phone: Start: 06-06-2024 End: 06-06-2024 ambulatory Zebulun Beam VSC Facility:[facility] Start: 01-17-2024 End: 01-17-2024 ambulatory Zebulun Beam VSC Facility:[facility] Start: 01-10-2024 ambulatory KHADIJAH CASTAÑEDA [facility] Start: 12-01-2023 End: 12-01-2023 ambulatory EDGARDO GECÉSAR NICKERSON [facility] Start: 11-28-2023 ambulatory Jorge J [facility] Facility :[place] Start: 11-21-2023 ambulatory Jorge J DO [facility] Facility :[place] Start: 10-20-2023 End: 10-20-2023 ambulatory FLORECITA JEAN Facility:[place] Start: 10-20-2023 Khadijah karimi [facility] Start: 10-10-2023 End: 10-10-2023 Orders Only Edgardo Nickerson DO Work Phone: [facility] Comment on above: Coronary artery dise ase, unspecified vessel or lesion type, unspecified whether angina present, unspecified whether chemehuevi or transplanted heart (Primary Dx) Start: 08-16-2023 End: 08-16-2023 Office outpatient new 30 minutes Lyn Kirstensuzy Nolanable DO Work Phone: [facility] Comment on above: Closed fracture of l eft wrist, initial encounter (Primary Dx); Other closed nondisplaced fracture of distal end of right humerus, initial encounter Start: 08-16-2023 End: 08-20-2023 Orders Only Lyn Kirsten Knable DO Work Phone: [facility] Comment on above: Right elbow pain (Pr imary Dx); Left wrist pain Start: 08-10-2023 End: 08-10-2023 Transcribe Orders Lyn Kirsten Knable DO Work Phone: [facility] Comment on above: Closed fracture of l eft wrist, initial encounter (Primary Dx) Start: 08-01-2023 Transcribe Orders Jose Luis Jones VOCATIONAL TRAINING DIRECTOR Work Phone: [facility] Comment on above: Pacemaker (Primary D x); Coronary artery disease, unspecified vessel or lesion type, unspecified whether angina present, unspecified whether chemehuevi or transplanted heart; Chronic atrial fibrillation (HCC); Essential hypertension Start: 06-16-2023 End: 06-16-[address] [facility] Start: 06-16-2023 End: 06-16-2023 Emergency department patient visit Samir Ramey Ángela DO Work Phone: [facility] Emergency Department Start: 06-15-2023 End: 06-16-2023 Emergency department [facility] Start: 06-02-2023 End: 06-02-2023 ambulatory PORTIA WOODARDYER Facility:[facility] Start: 03-26-2023 End: 03-26-2023 ambulatory PHYSICIAN [facility] Start: 03-26-2023 End: 03-26-2023 Office outpatient visit 15 minutes Cari Padilla VOCATIONAL TRAINING DIRECTOR Work Phone: [facility] Urgent [facility] [place] Comment on above: COVID-19 (Primary Dx ); Upper respiratory tract infection, unspecified type Start: 03-23-2023 End: 03-23-2023 ambulatory PHYSICIAN NO [facility] Start: 03-23-2023 End: 03-23-2023 Office outpatient visit 15 minutes Cody Hilario DO Work Phone: [facility] [place] Comment on above: Acute non-recurrent pansinusitis (Primary Dx); Influenza-like illness; Suspected COVID-19 virus infection Start: 11-07-2021 Kelley Gastelum [facility] Start: 08-05-2022 Opscpy extnd rta dra hoyt & scl deprsn i&r uni/bi Kennedi Greer [facility] Start: 06-25-2021 End: 06-25-2021 ambulatory JAMAL LOVE [facility] Start: 06-25-2021 End: 06-25-2021 Office outpatient visit 15 minutes Jamal Love DO Work Phone: [facility] [place] Comment on above: Suspected COVID-19 v irus infection (Primary Dx); Influenza-like illness; Acute pharyngitis, unspecified etiology; Exposure to 2019 novel coronavirus Start: 05-19-2021 Opscpy extnd rta dra hoyt & dwight deprsn i&r uni/bi Khadijah Garry [facility]_FAMILY[facility] Start: 04-30-2020 End: 04-30-2020 Orders Only Little Yuki Cedeno Work Phone: [facility] Start: 09-09-2019 End: 09-09-2019 Emergency department patient visit Eliz Nixonshavonnemarge Work Phone: [facility] Emergency [facility] Comment on above: Traumatic hematoma o f right wrist, initial encounter (Primary Dx); Contusion of right lower extremity, initial encounter Start: 07-28-2019 End: 07-28-2019 Office outpatient visit 15 minutes Kennedi Burden Work Phone: [facility] [place] Comment on above: Essential hypertensi on (Primary Dx) Start: 05-08-2019 End: 05-08-2019 Office outpatient visit 25 minutes Carmella Choudhury Work Phone: [facility] Urgent [facility] [place] Comment on above: Essential hypertensi on (Primary Dx); Hyperlipidemia, unspecified hyperlipidemia type Start: 03-01-2019 Patient encounter procedure [facility] Start: 11-12-2016 End: 11-12-2016 Ambulatory PATY LOVE Facility:[facility] Start: 11-09-2016 End: 11-09-2016 Ambulatory KENZIE VO Facility:[facility] Start: 10-20-2016 End: 10-20-2016 Ambulatory PATY LOVE Facility:[facility] Procedures Date Procedure Procedure Detail Performing Clinician Start: 08-06-2024 IOL BIOMETRY W/ IOL CALC OU (BOTH EYES) Jhon Perez MD Work Phone: Start: 06-06-2024 Evaluation of diagno stic study results Zebugina Skinner [employer]ELD ART[employer] SENIOR SERGEANT-C Work Phone: Start: 06-16-2023 Glucose measurement Saul Garibay DO Work Phone: Start: 06-16-2023 Glucose measurement Saul Garibay DO Work Phone: Start: 06-16-2023 Basic metabolic pane l calcium total Ara [facility] Work Phone: Start: 06-16-2023 Ketone bodies serum quantitative Ara HAWKINS-C Work Phone: Start: 06-16-2023 Urnls dip stick/tabl et reagent auto microscopy Ara HAWKINS-C Work Phone: Start: 06-16-2023 Urnls dip stick/tabl et reagent auto microscopy Samir Figueroa DO Work Phone: Start: 06-16-2023 Comprehensive metabo lic panel Samir Dueñasen DO Work Phone: Start: 06-16-2023 Hepatic function panel Samir Figueroa DO Work Phone: Start: 03-26-2023 Sars-cov-2 detection by dna/rna Cari Padilla VOCATIONAL TRAINING DIRECTOR Work Phone: Start: 03-26-2023 Infectious agent dna /rna influenza 1st 2 types Cari Padilla VOCATIONAL TRAINING DIRECTOR Work Phone: Start: 03-23-2023 Infectious agent dna /rna influenza 1st 2 types Cari Padilla VOCATIONAL TRAINING DIRECTOR Work Phone: Start: 03-23-2023 Sars-cov-2 detection by dna/rna Cari Padilla VOCATIONAL TRAINING DIRECTOR Work Phone: Start: 06-03-2022 Lipid 1996 panel - S salvatore or Plasma Jhon Perez MD Work Phone: Start: 06-03-2022 Microalbumin [Mass/v olume] in Urine by Test strip Cari Padilla VOCATIONAL TRAINING DIRECTOR Work Phone: Start: 06-25-2021 End: 06-25-2021 Infectious agent dna/rna influenza 1st 2 types Jamal Love DO Work Phone: Start: 06-25-2021 Sars-cov-2 detection by dna/rna Jamal Love DO Work Phone: Start: 09-09-2019 Radiologic examinati on tibia & fibula 2 views [facility] [place] Work Phone: Start: 09-09-2019 Radex wrist complete minimum 3 views [place] Work Phone: Plan of Treatment Date Care Activity Detail Author Start: 09-08-2029 Tetanus vaccination Tetanus: Every 10yrs [facility] Start: 09-08-2029 Urine microalbumin profile DTaP,Tdap,Td Vaccine (2 - Td or Tdap) [facility] Start: 06-04-2027 Lipid panel Lipid Screening [facility] Start: 06-15-2026 Diabetes Screening Diabetes Screening [facility] Start: 10-15-2024 Influenza vaccination Influenza Vaccine (Season Ended) [facility] Start: 09-25-2024 End: 09-25-2024 Patient encounter procedure 09/25/2024 12:45 PM EDT Office Visit OP[facility] [place] [address] [place] [address] Kiera Kendrick, OD 1 [facility] [address] [place], [place] [id number] 3 week PO both eyes-[facility] [place] Comment on above: 3 week PO both eyes-[facility] Start: 09-03-2024 End: 09-03-2024 Patient encounter procedure 09/03/2024 3:45 PM EDT Office Visit OP[facility] [place] [address] [facility] [place] [address] Jhon Perez MD [address] [facility] [address] [place] [address] same day PO left eye [facility] [place] Comment on above: same day PO left eye Start: 09-03-2024 End: 09-03-2024 Admission to same day surgery center 09/03/2024 8:30 AM EDT - 09/03/2024 9:10 AM EDT Surgery [place] 1 [facility] [address] [place] [address] Jhon Perez MD 1 [facility] [address] [place] [address] PHACOEMULSIFICATION CATARACT IMPLANT INTRAOCULAR LENS W/O ENDOSCOPIC CYCLOPHOTOCOAGULATION [place] Comment on above: PHACOEMULSIFICATION CATARACT IMPLANT INT RAOCULAR LENS W/O ENDOSCOPIC CYCLOPHOTOCOAGULATION Start: 09-03-2024 End: 09-03-2024 Oph bmtry prtl coher intrfrmtry io lens pwr juan manuel OPHTHALMIC BIOMETRY BY PARTIAL COHERENCE INTERFEROMETRY W/INTRAOCULAR LENS POWER CALCULATION Combined forms of age-related cataract of left eye 09/03/2024 8:30 AM EDT [facility] Start: 09-03-2024 Subsequent hospital visit by physician 09/03/2024 8:30 AM EDT Hospital Encounter [place] 1 [facility] [address] [place] [address] Jhon Perez MD 1 [facility] [address] [place] [address] Combined forms of age-related cataract of left eye [H25.812] [place] Comment on above: Combined forms of age-related cataract o f left eye [H25.812] Start: 09-03-2024 End: 09-03-2024 Xcapsl ctrc rmvl insj io lens prosth w/o ecp PHACOEMULSIFICATION CATARACT IMPLANT INTRAOCULAR LENS W/O ENDOSCOPIC CYCLOPHOTOCOAGULATION Combined forms of age-related cataract of left eye 09/03/2024 8:30 AM EDT [facility] Start: 08-29-2024 End: 08-29-2024 Patient encounter procedure 08/29/2024 3:30 PM EDT Office Visit OP[facility] [place] [address] [facility] [place] [address] Jhon Perez MD 1 [facility] [address] [place] [address] 1 week PO right eye [facility] [place] Comment on above: 1 week PO right eye Start: 08-20-2024 End: 08-20-2024 Patient encounter procedure 08/20/2024 2:30 PM EDT Office Visit OP[facility] [place] [address] [facility] [place] [address] Jhon Perez MD 1 [facility] [address] [place] [address] same day PO right eye [facility] [place] Comment on above: same day PO right eye Start: 08-20-2024 End: 08-20-2024 Admission to same day surgery center 08/20/2024 1:10 PM EDT - 08/20/2024 1:50 PM EDT Surgery [place] 1 [facility] [address] [place] [address] Jhon Perez MD [address] [facility] [address] [place] [address] PHACOEMULSIFICATION CATARACT IMPLANT INTRAOCULAR LENS W/O ENDOSCOPIC CYCLOPHOTOCOAGULATION [place] Comment on above: PHACOEMULSIFICATION CATARACT IMPLANT INT RAOCULAR LENS W/O ENDOSCOPIC CYCLOPHOTOCOAGULATION Start: 08-20-2024 End: 08-20-2024 Oph bmtry prtl coher intrfrmtry io lens pwr juan manuel OPHTHALMIC BIOMETRY BY PARTIAL COHERENCE INTERFEROMETRY W/INTRAOCULAR LENS POWER CALCULATION Combined forms of age-related cataract of right eye 08/20/2024 1:10 PM EDT [facility] Start: 08-20-2024 Subsequent hospital visit by physician 08/20/2024 1:10 PM EDT Hospital Encounter [place] 1 [facility] [address] [place] [address] Jhon Perez MD 1 [facility] [address] [place] [address] Combined forms of age-related cataract of right eye [H25.811] [place] Comment on above: Combined forms of age-related cataract o f right eye [H25.811] Start: 08-20-2024 End: 08-20-2024 Xcapsl ctrc rmvl insj io lens prosth w/o ecp PHACOEMULSIFICATION CATARACT IMPLANT INTRAOCULAR LENS W/O ENDOSCOPIC CYCLOPHOTOCOAGULATION Combined forms of age-related cataract of right eye 08/20/2024 1:10 PM EDT [facility] Start: 2024 RSV Vaccine (1 - Risk 60-74 years 1-dose series) RSV Vaccine (1 - Risk 60-74 years 1-dose series) [facility] Start: 12-19-2023 RECHECK 20 RECHECK 20 [facility] Start: 11-07-2023 FQHC visit new patient NEW PATIENT 10 [facility] Start: 10-20-2023 Comprehensive metabolic 2000 panel - Serum or Plasma [facility] Start: 10-20-2023 hemoglobin A1c + average glucose, QN, blood [facility] Start: 10-20-2023 Patient encounter [facility] Start: 10-20-2023 XR Humerus Views [facility] Start: 10-20-2023 [facility] Start: 10-20-2023 RECHECK 20 RECHECK 20 [facility] Start: 10-16-2023 Covid-19 Vaccine ( season) Covid-19 Vaccine ( season) [facility] Start: 10-16-2023 Influenza vaccination [facility] Start: 10-11-2023 End: 10-11-2023 Patient encounter procedure 10/11/2023 3:20 PM EDT Office Visit [facility] [address] [place] [address] [place] [phone] Jose Luis Jones, [address] [place] [id number] Edgardo Ncikerson[address] [place] [facility] [place] [address] [facility] Start: 09-16-2023 Hemoglobin A1c measurement A1C [facility] Start: 08-16-2023 End: 08-16-2023 Patient encounter procedure 08/16/2023 2:30 PM EDT Office Visit [facility] [address] [place] [address] Dr [address] [place] [address] Lyn Link, [address] [place] [address] [facility] Start: 08-16-2023 End: 08-15-2024 XR Elbow - right 3 Views XR Elbow Right 3+ Views (Standard) Imaging Routine Right elbow pain Expected: 08/16/2023, Expires: 08/15/2024 [facility] Work Phone: Comment on above: Expected: 08/16/2023, Expires: Start: 08-16-2023 End: 08-15-2024 XR Wrist - left 3 Views XR Wrist Left 3+ Views (Standard) Imaging Routine Left wrist pain Expected: 08/16/2023, Expires: 08/15/2024 [facility] Comment on above: Expected: 08/16/2023, Expires: Start: 06-04-2023 History and physical examination, annual for health maintenance Wellness Visit [facility] Start: 06-04-2023 Urine screening for protein Urine Microalbumin [facility] Start: 10-15-2022 COVID-19 Vaccine ( season) COVID-19 Vaccine () [facility] Start: 10-15-2022 Influenza vaccination Sequential Influenza Vaccine (#1) [facility] Start: 09-18-2022 Glaucoma screening Diabetic Eye Exam [facility] Start: 04-29-2022 Administration of herpes zoster vaccine Zoster Vaccines (1 of 2) [facility] Start: 03-19-2022 RECHECK 30 RECHECK 30 [facility] Start: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 Relationship Condition Age at Onset Recorded Date/T jorgito father Parkinson's disease Unknown Dementia Unknown mother Coronary artery disease Unknown Presence of cardiac pacemaker Unknown Atrial fibrillation Unknown Advance Directives No Advanced Directives Records FoundDocuments on File Type Date Recorded Patient Plastic Duplicator Expl anation Advance Directives and Living Will Documents on File Type Date Recorded Patient Plastic Duplicator Expl anation Advance Directives and Livin g Will 07/28/2019 1:46 PM Documents on File Type Date Recorded Patient Plastic Duplicator Expl anation Advance Directives and Livin g Will 09/09/2019 12:31 PM Date Activated Date Inactivated Comments 06/16/2023 5:10 AM 06/16/2023 9:53 PM Date Activated Date Inactivated Comments 06/16/2023 5:10 AM 06/16/2023 9:53 PM History of Present Illness * Carmella Choudhury, VOCATIONAL TRAINING DIRECTOR - 05/08/2019 1:00 PM EDT Date 05/08/2019 Patient Name @NAMEBYAGE@ : 1965 Past Medical History Past Medical History: Diagnosis Date Diabetes mellitus (HCC) Hyperlipidemia Hypertension Tobacco Social History Tobacco Use Smoking Status Never Smoker Smokeless Tobacco Never Used Allergies Patient has no known allergies. Current Medications Current Outpatient Medications Medication Sig Dispense Refill atorvastatin (LIPITOR) 40 MG tablet Take 40 mg by mouth daily . lisinopriL (PRINIVIL,ZESTRIL) 40 MG tablet Take 40 mg by mouth daily . metFORMIN (GLUCOPHAGE) 1000 MG tablet Take 1,000 mg by mouth daily with breakfast . No current facility-administered medications for this visit. MAURY Barahona presents today for hypertension and hyperlipidemia. Previous PCP was Hector ALONSO but sheleft the practice and he has been out of his medication for 2 weeks. Reports having labs within thelast few months and reported normal. No history of kidney or liver problems. No chest pain or shortness of breath. ROS Review of Systems Constitutional: Negative for chills and fever. Eyes: No eye problems reported Respiratory: Negative for chest tightness and shortness of breath. Cardiovascular: Negative for chest pain. Gastrointestinal: Negative for abdominal pain, diarrhea, nausea and vomiting. Musculoskeletal: Negative for arthralgias and myalgias. Skin: Negative for rash (no rashes reported). Allergic/Immunologic: Negative for immunocompromised state. Neurological: Negative for seizures, syncope and headaches. Hematological: Does not bruise/bleed easily. Psychiatric/Behavioral: No thoughts of suicide or homicide reported Vital Signs PACU Vitals 05/08/19 1253 BP: (!) 196/104 Pulse: 72 Resp: 16 Temp: 99.2 F (37.3 C) Physical Exam Physical Exam Vitals signs and nursing note reviewed. Constitutional: General: He is not in acute distress. Appearance: He is not ill-appearing. HENT: Head: Normocephalic and atraumatic. Mouth/Throat: Mouth: Mucous membranes are moist. Pharynx: Oropharynx is clear. No oropharyngeal exudate or posterior oropharyngeal erythema. Eyes: Conjunctiva/sclera: Conjunctivae normal. Neck: Musculoskeletal: Normal range of motion and neck supple. Cardiovascular: Rate and Rhythm: Normal rate and regular rhythm. Heart sounds: No murmur. Pulmonary: Effort: Pulmonary effort is normal. Breath sounds: Normal breath sounds. No wheezing, rhonchi or rales. Musculoskeletal: Normal range of motion. Skin: General: Skin is warm and dry. Findings: No bruising or rash. Neurological: General: No focal deficit present. Mental Status: He is alert. Mental status is at baseline. Psychiatric: Mood and Affect: Mood normal. Behavior: Behavior normal. Thought Content: Thought content normal. Judgment: Judgment normal. Diagnosis No primary diagnosis found. Plan There are no diagnoses linked to this encounter. documented in this encounter* Kennedi Burden CNP - 07/28/2019 1:58 PM EDT PATIENT NAME: Kishan Post [facility] [address] [facility] [place] [address] : 1965 DATE OF VISIT: 07/28/2019 #: [id number] PROVIDER: Kennedi Burden CNP Chief Complaint Patient presents with Medication Refill patient out of Lisinopril 40 mg, has been out for one week SUBJECTIVE 54 y.o. male presents Medication Refill (patient out of Lisinopril 40 mg, has been out for one week) Patient presents here today with a need for a refill on his Lisinopril 40 Mg daily for his known PMHx of HTN. His b/p today is notably elevated at 200/110; however, he is presently asymptomatic. Denies headache, vision changes, tinnitus, epistaxis, chest pain, SOB, palpitations, wheezing, abdominalpain, n/v/d, rash, or new/different swelling. Was seen here for med refills in April as well, has not attempted to establish with PCP yet. No treatments or aggravating factors. MEDICAL ISSUES Past Medical History: Diagnosis Date Diabetes mellitus (HCC) Hyperlipidemia Hypertension There is no problem list on file for this patient. SOCIAL HISTORY Social History Socioeconomic History Marital status: Single Spouse name: Not on file Number of children: Not on file Years of education: Not on file Highest education level: Not on file Occupational History Not on file Social Needs Financial resource strain: Not on file Food insecurity Worry: Not on file Inability: Not on file Transportation needs Medical: Not on file Non-medical: Not on file Tobacco Use Smoking status: Never Smoker Smokeless tobacco: Never Used Substance and Sexual Activity Alcohol use: Not on file Drug use: Not on file Sexual activity: Not on file Lifestyle Physical activity Days per week: Not on file Minutes per session: Not on file Stress: Not on file Relationships Social connections Talks on phone: Not on file Gets together: Not on file Attends taoism service: Not on file Active member of club or organization: Not on file Attends meetings of clubs or organizations: Not on file Relationship status: Not on file Other Topics Concern Not on file Social History Narrative Not on file FAMILY HISTORY History reviewed. No pertinent family history. REVIEW OF SYSTEMS Review of Systems Constitutional: Negative for chills, fatigue and fever. HENT: Negative for congestion, nosebleeds, rhinorrhea, sinus pain, sore throat and tinnitus. Respiratory: Negative for cough, chest tightness, shortness of breath and wheezing. Cardiovascular: Negative for chest pain, palpitations and leg swelling. Gastrointestinal: Negative for abdominal pain, diarrhea, nausea and vomiting. Musculoskeletal: Negative for myalgias. Skin: Negative for rash. Neurological: Negative for dizziness, weakness, light-headedness and headaches. MEDICATIONS PRIOR TO VISIT Current Outpatient Medications on File Prior to Visit Medication Sig Dispense Refill metFORMIN (GLUCOPHAGE) 1000 MG tablet Take 1,000 mg by mouth daily with breakfast . pravastatin (Pravachol) 40 MG tablet Take 1 (one) tablet (40 mg total) by mouth every evening . 30 tablet 11 atorvastatin (LIPITOR) 40 MG tablet Take 40 mg by mouth daily . [DISCONTINUED] lisinopriL (PRINIVIL,ZESTRIL) 40 MG tablet Take 40 mg by mouth daily . [DISCONTINUED] lisinopriL (PRINIVIL,ZESTRIL) 40 MG tablet Take 1 (one) tablet (40 mg total) by mouth daily . 30 tablet 0 No current facility-administered medications on file prior to visit. ALLERGIES/INTOLERANCES No Known Allergies OBJECTIVE BP (!) 200/110 Pulse 72 Temp 97.1 F (36.2 C) Resp 16 Ht 6' 1 Wt 113.4 kg (250 lb) WqH554% BMI 32.98 kg/m Physical Exam Constitutional: Vital signs are normal. He appears well-developed and well- nourished. He does not appear ill. HENT: Head: Normocephalic and atraumatic. Right Ear: Tympanic membrane, external ear and ear canal normal. Left Ear: Tympanic membrane, external ear and ear canal normal. Nose: Nose normal. Mouth/Throat: Uvula is midline, oropharynx is clear and moist and mucous membranes are normal. Eyes: Pupils are equal, round, and reactive to light. Conjunctivae, EOM and lids are normal. Cardiovascular: Normal rate, regular rhythm and normal heart sounds. Pulmonary/Chest: Effort normal and breath sounds normal. No respiratory distress. Abdominal: Soft. Normal appearance and bowel sounds are normal. There is no abdominal tenderness. There is no CVA tenderness. Neurological: He is alert. Skin: Skin is warm, dry and intact. Psychiatric: He has a normal mood and affect. His behavior is normal. Nursing note and vitals reviewed. PROCEDURE Procedures Results No results found for this or any previous visit (from the past 168 hour(s)). ASSESSMENT/PLAN (expressed as patient instructions): 1. Essential hypertension lisinopriL (PRINIVIL,ZESTRIL) 40 MG tablet Return if symptoms worsen or fail to improve. MDM Section Patient presently asymptomatic, in no acute distress and exam is benign. I will refill Lisinopril x2 weeks; however, he is strongly recommended to at least establish and f/u with PCP for ongoing maintenance of medications and conditions. He verbalizes understanding. ORDERS PLACED THIS VISIT No orders of the defined types were placed in this encounter. MEDICATION LIST AT END OF VISIT Current Outpatient Medications Medication Sig Dispense Refill metFORMIN (GLUCOPHAGE) 1000 MG tablet Take 1,000 mg by mouth daily with breakfast . pravastatin (Pravachol) 40 MG tablet Take 1 (one) tablet (40 mg total) by mouth every evening . 30 tablet 11 atorvastatin (LIPITOR) 40 MG tablet Take 40 mg by mouth daily . lisinopriL (PRINIVIL,ZESTRIL) 40 MG tablet Take 1 (one) tablet (40 mg total) by mouth daily . 14 tablet 0 No current facility-administered medications for this visit. documented in this encounter Assessments Diagnosis Essential hypertension Unspecified essential hypertension Hyperlipidemia, unspecified hyperlipidemia type Diagnosis Essential hypertension Unspecified essential hypertension Diagnosis Traumatic hematoma of right wrist, initial encounter Contusion of right lower extremity, initial encounter Instructions * Patient Instructions* Kennedi Burden, VOCATIONAL TRAINING DIRECTOR - 07/28/2019 1:57 PM EDT -Establish and follow up with a primary care provider as soon as possible. High Blood Pressure: Care Instructions Overview It's normal for blood pressure to go up and down throughout the day. But if it stays up, you have high blood pressure. Another name for high blood pressure is hypertension. Despite what a lot of people think, high blood pressure usually doesn't cause headaches or make youfeel dizzy or lightheaded. It usually has no symptoms. But it does increase your risk of stroke, heart attack, and other problems. You and your doctor will talk about your risks of these problems based on your blood pressure. Your doctor will give you a goal for your blood pressure. Your goal will be based on your health and your age. Lifestyle changes, such as eating healthy and being active, are always important to help lower blood pressure. You might also take medicine to reach your blood pressure goal. Follow-up care is a dwyer part of your treatment and safety. Be sure to make and go to all appointments, and call your doctor if you are having problems. It's also a good idea to know your test resultsand keep a list of the medicines you take. How can you care for yourself at home? Medical treatment If you stop taking your medicine, your blood pressure will go back up. You may take one or more types of medicine to lower your blood pressure. Be safe with medicines. Take your medicine exactly as prescribed. Call your doctor if you think you are having a problem with your medicine. Talk to your doctor before you start taking aspirin every day. Aspirin can help certain people lower their risk of a heart attack or stroke. But taking aspirin isn't right for everyone, because it can cause serious bleeding. See your doctor regularly. You may need to see the doctor more often at first or until your blood pressure comes down. If you are taking blood pressure medicine, talk to your doctor before you take decongestants or anti-inflammatory medicine, such as ibuprofen. Some of these medicines can raise blood pressure. Learn how to check your blood pressure at home. Lifestyle changes Stay at a healthy weight. This is especially important if you put on weight around the waist. Losing even 10 pounds can help you lower your blood pressure. If your doctor recommends it, get more exercise. Walking is a good choice. Bit by bit, increase theamount you walk every day. Try for at least 30 minutes on most days of the week. You also may want to swim, bike, or do other activities. Avoid or limit alcohol. Talk to your doctor about whether you can drink any alcohol. Try to limit how much sodium you eat to less than 2,300 milligrams (mg) a day. Your doctor may ask you to try to eat less than 1,500 mg a day. Eat plenty of fruits (such as bananas and oranges), vegetables, legumes, whole grains, and low-fat dairy products. Lower the amount of saturated fat in your diet. Saturated fat is found in animal products such as milk, cheese, and meat. Limiting these foods may help you lose weight and also lower your risk for heart disease. Do not smoke. Smoking increases your risk for heart attack and stroke. If you need help quitting, talk to your doctor about stop-smoking programs and medicines. These can increase your chances of quitting for good. When should you call for help? Call 911 anytime you think you may need emergency care. This may mean having symptoms that suggest that your blood pressure is causing a serious heart or blood vessel problem. Your blood pressure maybe over 180/120. For example, call 911 if: You have symptoms of a heart attack. These may include: ? Chest pain or pressure, or a strange feeling in the chest. ? Sweating. ? Shortness of breath. ? Nausea or vomiting. ? Pain, pressure, or a strange feeling in the back, neck, jaw, or upper belly or in one or both shoulders or arms. ? Lightheadedness or sudden weakness. ? A fast or irregular heartbeat. You have symptoms of a stroke. These may include: ? Sudden numbness, tingling, weakness, or loss of movement in your face, arm, or leg, especially ononly one side of your body. ? Sudden vision changes. ? Sudden trouble speaking. ? Sudden confusion or trouble understanding simple statements. ? Sudden problems with walking or balance. ? A sudden, severe headache that is different from past headaches. You have severe back or belly pain. Do not wait until your blood pressure comes down on its own. Get help right away. Call your doctor now or seek immediate care if: Your blood pressure is much higher than normal (such as 180/120 or higher), but you don't have symptoms. You think high blood pressure is causing symptoms, such as: ? Severe headache. ? Blurry vision. Watch closely for changes in your health, and be sure to contact your doctor if: Your blood pressure measures higher than your doctor recommends at least 2 times. That means the top number is higher or the bottom number is higher, or both. You think you may be having side effects from your blood pressure medicine. Where can you learn more? Log into your personal health record on [email or web address] and enter X567 in the Education box to learn more about High Blood Pressure: Care Instructions. Current as of: May 23, 2018 Content Version: 12.3 0084-7754 [employer]. Care instructions adapted under license by your healthcare professional. If you have questions about a medical condition or this instruction, always ask your healthcare professional. [employer] disclaims any warranty or liability for your use of this information. documented in this encounter Discharge Instructions * Instructions* Diaz Terrazas PA-[facility] - 09/09/2019 Ice to the injured areas. Continue to wear the Nakul bandages for compression. Follow-up with your doctor this week for recheck. Return any complications. * Attachments The following attachments cannot be sent through Care Everywhere. * Contusion (Mauritanian) * Hematoma (Mauritanian) documented in this encounter Reason for Referral Specialty Diagnoses / Procedures Referred By Irish t Referred To Contact Cardiology Diagnoses Pacemaker Coronary artery disease, unspecified vessel or lesion type, unspecified whether angina present, unspecified whether chemehuevi or transplanted heart Chronic atrial fibrillation (HCC) Essential hypertension Jose Luis Jones, CELESTE [address] [place] [address] [facility] [address] [place] [address] Referral ID Status Reason Start Date Expiration Date V isits Requested Visits Authorized [id number] Closed Specialty Services Required/Juliana ent's Best Interest 08/01/2023 07/31/2024 1 1 Specialty Diagnoses / Procedures Referred By Contac t Referred To Contact Sports Medicine Diagnoses Closed fracture of left wrist, initial encounter Jose Luis Jones, VOCATIONAL TRAINING DIRECTOR [address] [place] [address] [place] [address] Referral ID Status Reason Start Date Expiration Date V isits Requested Visits Authorized [id number] Authorized 08/10/2023 08/09/2024 1 1 Specialty Diagnoses / Procedures Referred By Irish hines Referred To Contact Rehabilitation Diagnoses Closed fracture of left wrist, initial encounter Lyn Link[address] [place] [address] Referral ID Status Reason Start Date Expiration Date V isits Requested Visits Authorized [id number] Authorized 08/16/2023 08/15/2024 1 1 Chief Complaint and Reason for Visit Chief Complaint Admit Date AFIB (BEAM) June 06, 2024 2:2 5pm NEW ENROLEE (SCANNED) July 04, 2024 2:4 4pm Reason for Visit Admit Date Essential (primary) hypertension May 162024 2:25pm History of permanent cardiac pacemaker p lacement June 06, 2024 2:25pm Paroxysmal atrial fibrillation May 2:25pm History of permanent cardiac pacemaker p lacement July 04, 2024 2:44pm Sick sinus syndrome July 04, 2024 2:44p m Chief Complaint Admit Date AFIB (BEAM) June 06, 2024 2:2 5pm Pacer Check Remote July 04, 2024 9:00a m NEW ENROLEE (SCANNED) July 04, 2024 2:4 4pm Additional Source Comments (unrecognized sect ion and content) No Status Records FoundNo Status Records FoundNo Status Records FoundNo Status Records FoundNo Status Records FoundNo Status Records FoundNo Status Records FoundNo Status Records FoundNo Status Records FoundNo Status Records FoundNo Status Records Found INFORMATION SOURCE (unrecogn ized section and content) DATE CREATED AUTHOR 08/12/2017 [facility] DATE CREATED AUTHOR AUTHOR'S ORGANIZ ATION 03/01/2019 [facility] DATE CREATED AUTHOR AUTHOR'S ORGANIZ ATION 06/27/2021 [facility] DATE CREATED AUTHOR AUTHOR'S ORGANIZ ATION 03/27/2023 [facility] DATE CREATED AUTHOR AUTHOR'S ORGANIZ ATION 06/26/2023 [facility] DATE CREATED AUTHOR AUTHOR'S ORGANIZ ATION 11/26/2023 [facility] DATE CREATED AUTHOR AUTHOR'S ORGANIZ ATION [facility]/03/2023 [facility] DATE CREATED AUTHOR AUTHOR'S ORGANIZ ATION 01/11/2024 [facility] ([place]) DATE CREATED AUTHOR AUTHOR'S ORGANIZ ATION 01/13/2024 [facility] DATE CREATED AUTHOR AUTHOR'S ORGANIZ ATION 08/03/2024 [facility] DATE CREATED AUTHOR AUTHOR'S ORGANIZ ATION 08/07/2024 [facility] Reason for Visit (unrecogniz ed section and content) Reason Comments Medication Problem needs refill of HTN medication Reason Comments Medication Refill patient out of Lisin opril 40 mg, has been out for one week Reason Comments Fall Reason Comments Cough Fever Shortness of Breath Otalgia Headache Reason Comments Nausea Nasal Congestion Specialty Diagnoses / Procedures Referred By Contac t Referred To Contact Diagnoses Hematuria Right distal humerus fracture, hematuria Referral ID Status Reason Start Date Expiration Date Visits Re quested Visits Authorized [id number] 1 1 Reason Comments Fever Cough Nasal Congestion Generalized Body Aches Reason Comments Pain Injury Specialty Diagnoses / Procedures Referred By Contac t Referred To Contact Sports Medicine Diagnoses Closed fracture of left wrist, initial encounter Jose Luis Jones, VOCATIONAL TRAINING DIRECTOR [address] [place] [address] Lyn Link, [address] [place] [address] Referral ID Status Reason Start Date Expiration Date Visits Re quested Visits Authorized [id number] Closed 08/10/2023 08/09/2024 1 1 Reason Comments Cataract Evaluation Reason Comments IOL CALCULATIONS IOL #1 Diaz Terrazas PA-C - 09/09/2019 12:32 PM EDTMFlorecita reynoso RN - 09/09/2019 12:22 PM EDT ED Notes (unrecognized secti on and content) .[facility] JUVENAL NOTE: NAME: Kishan Post 54 y.o. CSN: [id number] PCP: Physician No History: Chief Complaint: Fall HPI: The history was obtained from the patient. Kishan is a 54 y.o. male who presents with a chief complaint of Fall. Patient tripped and fell down 3 steps and injured his wrist and right tib-fib area. He did bump his head but no loss of consciousness, headache. He denies any neck or back pain. He did suffer a small puncture wound on the right wrist. His last tetanus is over 5 years ago. PMHx: Past Medical History: Diagnosis Date Diabetes mellitus (HCC) Hyperlipidemia Hypertension PMSx: Past Surgical History: Procedure Laterality Date ATRIAL CARDIAC PACEMAKER INSERTION 08/14/2014 FAM. Hx: No family history on file. SOC. Hx: Social History Socioeconomic History Marital status: Spouse name: Not on file Number of children: Not on file Years of education: Not on file Highest education level: Not on file Occupational History Not on file Social Needs Financial resource strain: Not on file Food insecurity Worry: Not on file Inability: Not on file Transportation needs Medical: Not on file Non-medical: Not on file Tobacco Use Smoking status: Never Smoker Smokeless tobacco: Never Used Substance and Sexual Activity Alcohol use: Not on file Drug use: Not on file Sexual activity: Not on file Lifestyle Physical activity Days per week: Not on file Minutes per session: Not on file Stress: Not on file Relationships Social connections Talks on phone: Not on file Gets together: Not on file Attends taoism service: Not on file Active member of club or organization: Not on file Attends meetings of clubs or organizations: Not on file Relationship status: Not on file Other Topics Concern Not on file Social History Narrative Not on file MEDs: Previous Medications Medication Sig atorvastatin (LIPITOR) 40 MG tablet Take 40 mg by mouth daily . lisinopriL (PRINIVIL,ZESTRIL) 40 MG tablet Take 1 (one) tablet (40 mg total) by mouth daily . metFORMIN (GLUCOPHAGE) 1000 MG tablet Take 1,000 mg by mouth daily with breakfast . pravastatin (Pravachol) 40 MG tablet Take 1 (one) tablet (40 mg total) by mouth every evening . ALL: No Known Allergies ROS: Review of Systems Positives and pertinent negatives as per HPI. All other systems were reviewed and are negative. Physical Exam: Patient Vitals for the past 24 hrs: BP Temp Temp src Pulse Resp SpO2 Height Weight 09/09/19 1224 (!) 193/95 98 F (36.7 C) Oral (!) 103 15 95 % 6' 1.5 113.4 kg (250 lb) Physical Exam Constitutional: General: He is awake. HENT: Head: Normocephalic and atraumatic. Nose: Nose normal. Eyes: General: Lids are normal. No scleral icterus. Pulmonary: Effort: Pulmonary effort is normal. No respiratory distress. Musculoskeletal: Right forearm: He exhibits tenderness, bony tenderness and swelling. Right lower leg: He exhibits bony tenderness. He exhibits no tenderness. Left lower leg: He exhibits no swelling. No edema. Comments: Hematoma to the ulnar side of the right wrist. Skin: General: Skin is warm. Findings: No rash (no acute rash on exposed areas). Neurological: Mental Status: He is alert and oriented to person, place, and time. Psychiatric: Attention and Perception: Attention normal. Mood and Affect: Mood normal. Behavior: Behavior normal. Laboratory & Radiological Imaging (if done): Labs Reviewed - No data to display XR Tibia Fibula Right 2 Views Final Result Negative radiographic evaluation for fracture. Workstation ID: [id number] XR Wrist Right 3+ Views (Standard) Final Result Negative radiographic evaluation for fracture. Workstation ID: [id number] MDM: Patient tripped and fell going down the steps and banged his right arm on a railing causing a hematoma and abrasion. He has pain to the ulnar side of the wrist. He also has pain to the proximal tib-fib area. X-rays obtained of both areas and there are no fractures or bony abnormalities. He was prescribed pain medicine to take as needed for the pain. Ice and elevate the extremity. Follow-up with your doctor this week for recheck and return sooner if any complications Clinical Impression: 1. Traumatic hematoma of right wrist, initial encounter 2. Contusion of right lower extremity, initial encounter Disposition: Patient is being discharged to home New Prescriptions traMADoL (ULTRAM) 50 mg tablet Take 1 (one) tablet (50 mg total) by mouth every 6 (six) hours as needed for pain (Days supply per fill: 3) . Diaz Terrazas PA-C ED Advanced Practice Provider [facility] (Please note that portions of this note have been completed with a voice recognition software. Efforts were made to correct any errors, but occasionally words are mis-transcribed.) Diaz Terrazas PA-C 09/09/19 1342 Patient states he fell down 3-4 basement stairs. Denies hitting head or LOC. States he hit right forearm off of steel pole. Denies use of blood thinners. Swelling noted to right wrist with limited ROM observed. Round raised area noted to lateral side of right forearm. No bleeding or drainage observed or discoloration. documented in this encounter ED Attestation Note - Eliz Miguel DO - 09/09/2019 12:14 PM EDT Miscellaneous Notes (unrecog nized section and content) ED Attestation: I did not see this patient. However, I was personally available for consult in the ED for this patient, if the Advanced Practice Provider (JUVENAL) needed any assistance. The JUVENAL evaluated the patient independently for a complaint of No chief complaint on file., and completed their own examination, documentation, and discharge. documented in this encounter Care Teams (unrecognized sec tion and content) Materials And Processes Manager Relationship Specialty Start Date End Date No, Physician [facility] PCP - General 05/08/19 Materials And Processes Manager Relationship Specialty Start Date End Date No, Physician [facility] PCP - General 05/08/19 Materials And Processes Manager Relationship Specialty Start Date End Date No, Physician [facility] PCP - General 05/08/19 Materials And Processes Manager Relationship Specialty Start Date End Date No, Physician [facility] PCP - General 05/08/19 Materials And Processes Manager Relationship Specialty Start Date End Date No, Physician [facility] PCP - General 05/08/19 Materials And Processes Manager Relationship Specialty Start Date End Date No, Physician [facility] PCP - General 05/08/19 Materials And Processes Manager Relationship Specialty Start Date End Date No, Physician [facility] PCP - General 05/08/19 Materials And Processes Manager Relationship Specialty Start Date End Date No, Physician [facility] PCP - General 05/08/19 Team Status: Active Member Role Status Dates Zebulun Beam VSC, FIELD ARTILLERY SENIOR SERGEANT-C Primary Care Provider Active Team Status: Inactive Member Role Status Dates Zebulun Beam VSC, FIELD ARTILLERY SENIOR SERGEANT-C Primary Care Provider Active Start: June 06, 2024 End: June 06, 2024 Zebulun Beam VSC, FIELD ARTILLERY SENIOR SERGEANT-C Referring Provider Active Start: June 06, 2024 End: June 06, 2024 Dr. Tiago Galloway MD Attending Provider Active S tart: June 06, 2024 End: June 06, 2024 Team Status: Inactive Member Role Status Dates Zebulun Beam VSC, FIELD ARTILLERY SENIOR SERGEANT-C Primary Care Provider Active Start: July 04, 2024 End: July 04, 2024 Zebulun Beam VSC, FIELD ARTILLERY SENIOR SERGEANT-C Referring Provider Active Start: July 04, 2024 End: July 04, 2024 Joleen Mg Attending Provider Active Start: 2024 End: July 04, 2024 Team Status: Inactive Member Role Status Dates Zebulun Beam VSC, FIELD ARTILLERY SENIOR SERGEANT-C Primary Care Provider Active Start: July 04, 2024 End: July 04, 2024 Dr. Tiago Galloway MD Attending Provider Active S tart: July 04, 2024 End: July 04, 2024 Dr. Tiago Galloway MD Referring Provider Active S tart: July 04, 2024 End: July 04, 2024 Team Status: Inactive Member Role Status Dates Zebulun Beam VSC, FIELD ARTILLERY SENIOR SERGEANT-C Primary Care Provider Active Start: July 18, 2024 End: July 18, 2024 Ele Cotto VSC, FIELD ARTILLERY SENIOR SERGEANT-C Attending Provider Active Start: July 18, 2024 End: July 18, 2024 Team Status: Inactive Member Role Status Dates Zebulun Beam VSC, FIELD ARTILLERY SENIOR SERGEANT-C Primary Care Provider Active Start: July 04, 2024 End: July 04, 2024 Dr. Tiago Galloway MD Attending Provider Active S tart: July 04, 2024 End: July 04, 2024 Materials And Processes Manager Relationship Specialty Start Date End Date Reji Skinner NP [phone] [phone] PCP - General Family Medicine 07/23/24 Scheduled Active and Recently Administ ered Medications (unrecognized section and content) Medication Order 06/14/2023 06/15/2023 06/16/2023 amLODIPine (NORVASC) tablet 5 mg 5 mg, Oral, Daily, First dose on Marleen 06/16/23 at 0900 0828 (Given - Provid er: Gale Hilario, RN) atorvastatin (LIPITOR) tablet 10 mg 10 mg, Oral, Nightly, First dose on Marleen 06/16/23 at 2100 escitalopram oxalate (LEXAPRO) tablet 10 mg 10 mg, Oral, Daily, First dose on Marleen 06/16/23 at 0900 0828 (Given - Provid er: Gale Hilario, SUNDEEP) insulin lispro (AdmeLOG,HumaLOG) injection 0-15 Units(Linked Group 1) 0-15 Units, Subcutaneous, At bedtime, First dose on Marleen 06/16/23 at 2100, IF initial POC glucose is greater than 250, administer insulin as directed and re-check POC glucose no sooner than 2 hours after administration. THEN notify provider if POC glucose is still greater than 250., For nightly BG greater than 250, give: Half ( ) Corrective Scale, Nightly Prandial Snack Dosing Method: NO Snack Coverage - Corrective Scale ONLY, Nightly Insulin Dose Corrective Scale: FOLLOW DAYTIME Prandial Corrective Scale, Corrective Insulin Regimen (select desired scale to cover BG result): USUAL Sensitivity Scale, (REMINDER: Nightly Insulin Dose Corrective Scale will be automatically calculated to be of the daytime scale), Dose Reduction Threshold (at meals) for POC Blood Glucose less than or equal to: 80, For Downtime Calculator, use: Insulin SC NIGHTtime insulin lispro (AdmeLOG,HumaLOG) injection 0-30 Units 0-30 Units, Subcutaneous, 3 times daily before meals, First dose on Marleen 06/16/23 at 1145, * Dose should be given EITHER: No sooner than 10-15 minutes BEFORE a meal (Specific Prandial Doses or NO Prandial Dose - Corrective Scale ONLY) - OR - Immediately AFTER meal completed (Carb Counting Ratio), Prandial Insulin Dosing Method: NO Prandial Dose - Corrective Scale ONLY, Corrective Insulin Regimen (select desired scale to cover BG result): USUAL Sensitivity Scale, Dose Reduction Threshold (at meals) for POC Blood Glucose less than or equal to: 80, For Downtime Calculator, use: Insulin SC MEALtime PREprandial 1145 (Not Given - Pr ovider: Gale Hilario RN - Reason: Patient/family refused)1630 (Due) lisinopriL (PRINIVIL,ZESTRIL) tablet 40 mg (CANCELED) 40 mg, Oral, Daily, First dose on Tue06/16/23 at 1100 1108 (Given - Provid er: Gale Hilario RN) metFORMIN (GLUCOPHAGE) tablet 1,000 mg (CANCELED) 1,000 mg, Oral, 2 times daily with meals, First dose on Tue06/16/23 at 0800, hold for 48 hours following contrast. 0828 (Given - Provid er: Gale Hilario RN) uhnbhdfd-qbxr-II-calcium-mins 9 mg iron-400 mcg tablet 1 tablet 1 tablet, Oral, Daily, First dose on Tue06/16/23 at 0900 0828 (Given - Provid er: Gale Hilario RN) PRN Medication Order 06/14/2023 06/15/2023 06/16/2023 acetaminophen (TYLENOL) tablet 650 mg 650 mg, Oral, Every 4 hours PRN, fever 100.4 F or greater, headaches, Starting on Tue06/16/23 at 1154 hydrALAZINE (APRESOLINE) injection 10 mg 10 mg, Intravenous, Every 6 hours PRN, SBP > 160, hold for SBP < 100, Starting on Tue06/16/23 at 1153 labetaloL (NORMODYNE) injection 10 mg 10 mg, Intravenous, Every 2 hour PRN, SBP > 160, hold for SBP < 100 or HR < 65, Starting on Tue06/16/23 at 1153 1353 (Given - Provid er: Dante Ruiz RN) methocarbamoL (ROBAXIN) tablet 500 mg 500 mg, Oral, 3 times daily PRN, muscle spasms, Starting on Tue06/16/23 at 1154 Linked Groups Order Group 1: insulin lispro (AdmeLOG,HumaLOG) injection 0-15 UnitsJump to med 0-15 Units, Subcutaneous, At bedtime, First dose on Tue06/16/23 at 2100, IF initial POC glucose is greater than 250, administer insulin as directed and re-check POC glucose no sooner than 2 hours after administration. THEN notify provider if POC glucose is still greater than 250., For nightly BG greater than 250, give: Half ( ) Corrective Scale, Nightly Prandial Snack Dosing Method: NO Snack Coverage - Corrective Scale ONLY, Nightly Insulin Dose Corrective Scale: FOLLOW DAYTIME Prandial Corrective Scale, Corrective Insulin Regimen (select desired scale to cover BG result): USUAL Sensitivity Scale, (REMINDER: Nightly Insulin Dose Corrective Scale will be automatically calculated to be of the daytime scale), Dose Reduction Threshold (at meals) for POC Blood Glucose less than or equal to: 80, For Downtime Calculator, use: Insulin SC NIGHTtime And Notify physician (CANCELED) Routine, Until discontinued, Starting on Tue06/16/23 at 1145, Until Specified, Other: IF HS POC Glucose RE-CHECK Greater than 250, If initial HS POC glucose is greater than 250, administer insulin as directed and re-check POC glucose no sooner than 2 hours after administration. IF RE-CHECK POC glucose is still greater than 250, notify provider. Source Comments (unrecognize d section and content) In the event this informatio n is protected by the Federal Confidentiality of Alcohol and Drug Abuse Patient Records regulations: The Federal rules restrict any use of the information to criminally investigate or prosecute any alcohol or drug abuse patient.[facility] the event this information is protected by the Federal Confidentiality of Alcohol and Drug Abuse Patient Records regulations: The Federal rules restrict any use of the information to criminally investigate or prosecute any alcohol or drug abuse patient.[facility] Goals (unrecognized section and content) Goals may be documented in a n alternate section FOR RECORDS PERTAINING TO PATIENTS WHO ARE OR HAVE BEEN ENROLLED IN A CHEMICAL DEPENDENCY/SUBSTANCEABUSE PROGRAM, SOME INFORMATION MAY BE OMITTED. This clinical summary was aggregated from multiple sources. Caution should be exercised in using it in the provision of clinical care. This summary normalizes information from multiple sources, and as a consequence, information in this document may materially change the coding, format and clinical context of patient data. In addition, data may be omitted in some cases. CLINICAL DECISIONS SHOULD BE BASED ON THE PRIMARY CLINICAL RECORDS. [facility] [employer] [facility]. provides no warranty or guarantee of the accuracy or completeness of information in this document.
[2024-08-09 16:10] LABS: Thyroglobulin Antibody < 1.0 IU/mL (0.0-0.9); Thyroid Peroxidase AB < 9 IU/mL (0-34)
== END | disposition home or self-care (01) ==
LOC: VSLAB 12:16
DX: R94.6 Abnormal results of thyroid function studies (principal)
CPT/HCPCS: 36415; 84436; 84439; 84443; 84481; 86376; 86800